=== PATIENT | male | born 1955 | race Caucasian/White ===

== ENCOUNTER 2020-10-09 05:05 | Inpatient (IN) | payer MEDICARE, SELFPAY ==
[2020-10-09] VITALS (30 sets, daily range): BP systolic 91–150; BP diastolic 61–103; PULSE 49–77; RESP 10–23; TEMP 35.6–36.6; O2SAT 92–100; BMI 27.5; BMI 27.3
--- NOTE | 2020-10-09 05:07 | EKG12_ITS ---
Test Reason : STEMI Blood Pressure : / mmHG Vent. Rate : 063 BPM Atrial Rate : 063 BPM P-R Int : 174 ms QRS Dur : 098 ms QT Int : 406 ms P-R-T Axes : 074 070 096 degrees QTc Int : 415 ms Normal sinus rhythm Right atrial enlargement ST elevation consider inferior injury or acute infarct with possible posterior extension ACUTE VA / STEMI Consider right ventricular involvement in acute inferior infarct Abnormal ECG Confirmed by ANTOINETTE MCKEON, CELE ([id number]), scientific editor TIGRE SHAVER ([id number]) on 10/13/2020 9:23:44 AM Referred By: Deann Khanna Confirmed By:CELE CURRY MD
--- NOTE | 2020-10-09 05:09 | ED.VIS.CHEST ---
HPI History of Present Illness Chief Complaint: Chest Pain Detail of Chief Complaint: Chest pain that started approximately 8:30 PM Informant: patient Narrative Narrative: Patient presents with chest pain that started around 8:30 PM last evening. At one point it woke him up and he felt like he had indigestion. Patient had numbness and tingling in both arms and nausea and felt like he was going to vomit. He is never had discomfort like this before. He has no cardiac history. Patient states that he used to be on cholesterol medicine. Patient is a smoker. He denies recent travel or surgery. Prior to arrival in the emergency department EMS had transmitted an EKG that showed an acute inferior wall MA Prior Similar Symptoms: No PFSH PFSH Home Medications Eye Thyroid 12.5 mg PO DAILY 07/08/15 [History Last Taken Unknown] Nature Thyroid 65 mg PO DAILY 07/08/15 [History Last Taken Unknown] cholecalciferol (vitamin D3) 10,000 unit PO DAILY 07/08/15 [History Last Taken Unknown] oxycodone-acetaminophen 1 - 2 tab PO Q6H PRN PRN #60 tab 07/14/15 [Rx Last Taken Unknown] Allergy/AdvReac Type Severity Reaction Status Date / Time No Known Allergies Allergy Verified 07/08/15 10:25 Social History Smoking Status: Light Smoker (<10/day) ROS ROS ED Review of Systems ROS Unobtainable: other Constitutional Constitutional ED: Reports lethargy; Denies chills, fever(s), sweats or weight loss Eyes Eyes: Denies blurry vision, change in vision or diplopia ENT ENT ED: Denies rhinorrhea or sore throat Cardiovascular Cardiovascular: Reports chest pain; Denies orthopnea Respiratory/Chest Respiratory/Chest: Reports dyspnea and dyspnea on exertion; Denies cough, orthopnea or sputum Gastrointestinal Gastrointestinal: Reports nausea; Denies abdominal pain, diarrhea or vomiting Genitourinary Genitourinary ED: Denies dysuria, hematuria or urinary frequency Musculoskeletal Musculoskeletal: Denies arthralgias, back pain, myalgias or neck pain Integumentary Denies abscess, Abrasions or rash Neurologic Neurologic: Denies headache(s) or weakness Psychiatric Psychiatric: Denies anxiety, depression or suicidal thoughts Endocrine Endocrinology: Denies polydipsia, polyphagia or polyuria Hematologic/Lymphatic Hematologic/Lymphatic: Denies easy bleeding, easy bruising or lymphadenopathy Allergic/Immunologic Allergic/Immunologic ED: Denies mouth swelling, tongue swelling or urticaria EXAM Physical Exam Const Vital Signs: 10/09/20 05:06 10/09/20 05:10 10/09/20 05:16 Temperature 96.1 F L 96.3 F L Temperature Source Temporal Temporal Pulse Rate 68 66 66 Respiratory Rate 17 16 14 Blood Pressure 150/103 H 127/94 H Blood Pressure Mean 118 105 Pulse Ox 95 92 Oxygen Delivery Method Nasal Cannula Nasal Cannula Oxygen Flow Rate (L/min) 2 2 Positive well nourished and well developed General Appearance ED: well developed and NAD HEENT Reports TM's clear and moist mucous membranes normocephalic and atraumatic; Negative for trauma or tenderness Tympanic Membrane ED: Yes TM's clear Eyes PERRL and EOMs intact bilaterally General Eye ED: Negative for pale conjunctiva or scleral icterus Neck no lymphadenopathy, supple and no JVD General: Negative for tenderness Chest Wall inspection of chest normal and palpation of chest normal Chest: Negative for tenderness Resp normal respiratory effort and clear to auscultation bilaterally Effort and Inspection: Negative for respiratory distress or pain with movement Auscultation: Negative for rhonchi, wheezes or diminished lung sounds Cardio regular rate, regular rhythm, S1 normal heart sound, S2 normal heart sound and no murmurs Peripheral Pulses: pulses 2+ throughout GI normal to inspection, nondistended, normoactive bowel sounds, soft to palpation, non-tender, non-distended and no masses Back/Spine no CVA tenderness and no thoracic nor lumbar tenderness Extremity normal to inspection General Extremety ED: Negative for edema General Extremity: Negative for edema Neuro oriented x3, CN's II-XII intact bilaterally, no sensory deficits noted and gait normal Sensorium / Orientation: awake, alert, oriented to person, oriented to place and oriented to time Motor Exam: strength 5/5 throughout and strength abnormal Psych mental status grossly normal Skin no rashes or lesions noted and no wounds MDM MDM MDM Narrative Medical decision making narrative: Acute STEMI alert was called prior to patient arrival in the emergency department. I discussed case with coin box collector on-call and Template Cutter was activated. Patient had an IV line established on arrival. He was placed on a registered nurse cardiac telemetry. He was started on heparin as well as Brilinta. Patient had received aspirin by EMS. Lab Data Attestation: I reviewed the patient's lab results. Labs: Laboratory Results - last 24 hr 10/09/20 05:10 WBC 8.6 RBC 4.57 L Hgb 14.4 Hct 44.6 MCV 97.6 H MCH 31.5 MCHC 32.3 RDW Std Deviation 47.0 H RDW Coeff of Sergio 13.2 Plt Count 233 MPV 11.0 Immature Gran % (Auto) 0.500 Neut % (Auto) 64.1 Lymph % (Auto) 27.0 Buchanan % (Auto) 6.6 Eos % (Auto) 1.3 Baso % (Auto) 0.5 Absolute Neuts (auto) 5.5 Absolute Lymphs (auto) 2.33 Nucleated RBC % 0 Radiography Chest X-Ray - ED: 1 View Diagnostic Testin view chest x-ray obtained interpreted by myself as no acute disease process. Official report from radiology pending. Discharge Plan Dx/Rx/DC Orders Clinical Impression: ST elevation (STEMI) myocardial infarction Disposition Disposition: Acute Care Hospital [facility]
[2020-10-09] MEDS: fentaNYL 100 MCG/2 ML Ampul 50 MCG IV (05:13)
[2020-10-09] MEDS: Heparin Injection (Vial) 5,000 UNIT/ML VIAL 4000 UNIT IV (05:14)
[2020-10-09] MEDS: TICAGRELOR 90 MG TABLET 180 MG PO (05:15)
[2020-10-09] MEDS: 0.9% Normal Saline 1,000 ML 150 ML IV (05:15)
--- NOTE | 2020-10-09 05:20 | RAD_ITS ---
STUDY: X-RAY CHEST REASON FOR EXAM: Male, 65 years old. chest pain TECHNIQUE: Single AP portable view of the chest. COMPARISON: None. FINDINGS: The lungs are clear and expanded. There is no demonstrated pleural abnormality. Normal size heart. Normal mediastinum and alee. Normal visualized pulmonary arteries. Normal visualized aortic arch and descending thoracic aorta. Normal visualized thoracic spine. Normal visualized ribs, clavicles, and shoulders. There is no demonstrated abnormality of the visualized soft tissue structures of the upper abdomen. RAD/Chest 1 View (Portable) IMPRESSION: Normal x-ray examination of the chest. Electronically Signed: Talat Rollins MD at 6:31 EDT Tel , Service support ,
[2020-10-09 05:25] LABS: Absolute Lymphocyte Count 2.33 X10^3/uL (0.83-4.51); Absolute Neutrophil Count 5.5 X10^3/uL (2.0-7.7); Basophil# 0.04 X10^3/uL; Basophil% 0.5 % (0-1); Eosinophil# 0.11 X10^3/uL; Eosinophils% 1.3 % (0-5); Hematocrit 44.6 % (40-54); Hemoglobin 14.4 g/dL (13.0-16.5); Lymphocyte # 2.33 X10^3/ul (0.83-4.51); Mean Corp Hgb Conc 32.3 g/dL (32-36); Mean Corpuscular Hgb 31.5 pg (27.0-32.0); Mean Corpuscular Volume 97.6 fL (80-94); Monocyte# 0.57 X10^3/uL; Monocyte% 6.6 % (0-10); NRBC Flagged by Analyzer 0 % (0-5); Neutrophil # 5.54 X10^3/uL (2.7-7.7); Neutrophil % 64.1 % (47-70); Platelet Count 233 K/mm3 (150-450); RBC Distribution Width CV 13.2 % (11.6-14.6); Red Blood Count 4.57 M/mm3 (4.6-6.2); White Blood Count 8.6 K/mm3 (4.4-11.0)
[2020-10-09] MEDS: Nitroglycerin (INPATIENT USE) 0.4 MG TAB.SUBL SL (05:28)
[2020-10-09 05:33] LABS: International Normalized Ratio 0.9; Prothrombin Time (Protime)PT. 11.9 SECONDS (11.7-14.9)
[2020-10-09] MEDS: Heparin 10,000 UNITS/10 ML Vial 1000 UNITS IV (05:40)
[2020-10-09 05:44] LABS: Anion Gap 5 (5-15); BUN 16 mg/dL (7-18); BUN/Creat Ratio 15.7 RATIO (10-20); Calcium,Total 8.8 mg/dL (8.5-10.1); Chloride 105 mmol/L (98-107); Creatinine, Serum 1.02 mg/dL (0.70-1.30); EST Glomerular Filtration Rate 77 mL/min (>60); Est Glom Filt Rate - Afr Amer 94 mL/min (>60); Estimated Creatinine Clearance 70.28 ml/min; Glucose 128 mg/dL (74-106); Sodium Level 138 mmol/L (136-145); Troponin-I HS 32.4 pg/mL (3.0-78.5)
[2020-10-09 05:45] LABS: Partial Thromboplast Time < 24.1 Seconds (24.1-36.2)
--- NOTE | 2020-10-09 06:32 | EKG12_ITS ---
Test Reason : POST CATH Blood Pressure : / mmHG Vent. Rate : 066 BPM Atrial Rate : 066 BPM P-R Int : 178 ms QRS Dur : 088 ms QT Int : 426 ms P-R-T Axes : 072 022 073 degrees QTc Int : 446 ms Normal sinus rhythm Biatrial enlargement Inferior infarct , age undetermined Abnormal ECG When compared with ECG of 09-OCT-2020 05:08, MANUAL COMPARISON REQUIRED, DATA IS UNCONFIRMED Confirmed by NAMAN MCKEON, RAJINDER ([id number]), editorial intern TIGRE SHAVER ([id number]) on 10/13/2020 2:04:12 PM Referred By: Deann Khanna Confirmed By:GERARDO FLORENCE MD
--- NOTE | 2020-10-09 06:40 | PCIREPORT_ITS ---
PCI Cardiac Cath Report PCI Report: Procedure performed; 1. Left heart catheterization 2. Left ventriculogram 3. Successful percutaneous coronary intervention/PCI of the culprit lesion, occluded proximal RCA 100% with predilatation and placement of drug-eluting stent 3 x 22 mm Orsiro line postdilated with 3.5 x 20 mm NC balloon And reduction of stenosis from 100% to 0% and change of the ELIECER flow from 0 to ELIECER-3 flow in the RCA 4. Placement of TR band to right radial artery arteriotomy site 5. 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 Patient had a history of smoking and he follow with primary physician and has been treated with cholesterol medication which he discontinued due to arthritis and muscular pain. He has no prior cardiac history and he is not aware about family history as he has been adopted. Consent; Risk and benefits of the procedure explained detail patient like to proceed informed consent obtained. Diagnostic and interventional catheters used; 1. Access from the right radial artery with placement of 6 Luxembourger sheath in the right radial artery and the use of cocktail of verapamil, heparin as well as nitroglycerin through the sheath 2. 5 Luxembourger JL 3.5 3. 5 Luxembourger pigtail catheter 4. 6 Luxembourger JR4 guide catheter 5. 0.014 run-through extra floppy 180 cm straight wire Procedure in detail: Patient brought into cath laboratory proceed with access and then will proceed with 5 Luxembourger JL 3.5 advanced ascending aorta cannulated the left main ostium without difficulty following this angiographic view obtained in JEANETTE, ONEAL cranial and caudal views Then will proceed with 6 Luxembourger JR4 guide cannulated the right coronary ostium and identified the lesion as occluded proximal RCA, proceed with wire across the lesion and then predilated the lesion with 2.5 x 50 mm image balloon this is followed by placement of drug-eluting stent 3 x 22 and followed by postdilatation using 3.5 x 20 mm NC balloon. And achievement of excellent result with the reduction of stenosis from 100% to 0 and achievement of a ELIECER-3 flow in the RCA Patient symptoms of chest pain resolved and had post perfusion arrhythmia and hypotension was given Levophed IV hydration and maintain a blood pressure of around 90 mmHg Findings; Hemodynamic; LVEDP around 22 mmHg Ejection fraction 45-50% with inferior hypokinesia No systolic gradient across aortic valve No mitral regurgitation noted Findings of coronary angiography; Left main normal angiographically bifurcating into LAD and left circumflex artery The left anterior descending moderate to large size vessel had proximal to mid diffuse atherosclerosis nonobstructive around 20%, 30 diagonal D1 had ostial lesion of around 60-70 The left circumflex is moderate-sized vessel mid to distal left circumflex had nonobstructive atherosclerosis of around 30% RCA occluded proximally large dominant artery with successful PCI and placement of drug-eluting stent as a specified. Conclusion recommendations; This patient had a history of smoking hyperlipidemia and presented with acute inferior myocardial infarction with successful PCI of the culprit lesion RCA 1. Would recommend Integrilin infusion for 18 hours 2. Echocardiogram to evaluate LV systolic function 3. Dual antiplatelet therapy Brilinta/aspirin for 1 year 4. High-dose statin atorvastatin 40 mg daily 5. We will start the patient also on cardiac rehab program phase 1. There is no complication in the Jute Bag Cutting Machine Operator patient left the Jute Bag Cutting Machine Operator in stable condition with no symptoms of chest pain Deann Khanna MD,[facility] master merchandiser
--- NOTE | 2020-10-09 08:20 | ECHOD_ITS ---
Reason For Study: STEMI Procedure This was a 2D Doppler, Color Flow transthoracic echocardiogram. Exam performed portable in ICU/CCU. Left Ventricle Normal left ventricle. The estimated ejection fraction is EF 50-55 %. Right Ventricle Normal right ventricle. Normal systolic function. Atria Normal left atrium. Normal right atrium. Mitral Valve The mitral valve is structurally normal. No prolapse or stenosis seen. Mild (1+) mitral valve insufficiency. Tricuspid Valve Normal tricuspid valve. Mild tricuspid valve insufficiency. Aortic Valve Normal aortic valve. Pulmonic Valve The pulmonic valve is not well visualized. Great Vessels Normal aortic root. Pericardium/Pleural No pericardial effusion. MMode/2D Measurements & Calculations LVIDd: 4.5 cm IVSd: 1.3 cm Ao root diam: 3.6 cm LVIDs: 3.0 cm LVPWd: 1.2 cm RVDd: 3.2 cm FS: 33.4 % LAV(MOD-bp): 62.1 ml LVAd ap4: 29.1 cm2 SV(MOD-sp4): 58.1 ml LAV(MOD-bp) Indexed: 31.1 ml/m2 LVLd ap4: 7.8 cm LAV(MOD-sp2): 44.6 ml EDV(MOD-sp4): 92.5 ml LAV(MOD-sp4): 70.3 ml EDV(sp4-el): 92.3 ml LVAs ap4: 15.4 cm2 LVLs ap4: 6.1 cm ESV(MOD-sp4): 34.4 ml ESV(sp4-el): 32.7 ml EF(MOD-sp4): 62.8 % EF(sp4-el): 64.6 % SV(sp4-el): 59.6 ml LA A4 area: 22.3 cm2 LA dimension(2D): 3.7 cm RA A4 area: 18.0 cm2 Doppler Measurements & Calculations Ao V2 max: 137.1 cm/sec LV V1 max: 143.7 cm/sec PA V2 max: 81.7 cm/sec Ao max P.5 mmHg LV V1 max P.3 mmHg TR max saul: 259.1 cm/sec TR max P.9 mmHg ECHO/Echo Complete Interpretation Summary The estimated ejection fraction is EF 50-55 %. Mild Infeo-Basal Hypokinesia mild MR Mild TR Ordering Physician: Deann Khanna Referring Physician: Deann Khanna Performed By: Lizzeth Garcia, MARELY, RVT
--- NOTE | 2020-10-09 09:40 | CASEMGMT ---
DARYL MULLER Assessment: Face to Face with pt for initial transition planning/care coordination assessment. DARYL MULLER introduced self and role at [facility], pt voices understanding and consents to assessment. Pt is A/O x4 and answers all questions appropriately at this time. Pt sitting up in bed in no distress. Care providers, pharmacy, and demographics verified/updated. Admitting Dx:STEMI PCP:Lin Specialists:Pt denies having any specialists. [facility]erred [facility]acy: [facility] Insurance: [facility] Prescription Benefit: yes LW/HPOA: Pt denies having a LW/DPOA. LNOK: Kalpana Sandhu, Living Arrangements: Pt lives in a single story house with two steps to enter with . Pt states he is I in ADL's and denies concerns at home. Transportation: Pt states he drives and denies concerns with transportation. DME/HHC/SNF: Pt has a CPAP at home. Denies hx of HHC or SNF stay. Pt states no concerns with going home at time of dc. 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 Pt states no further concerns/needs. CM to follow. Advised pt to ask CM if any further question/concerns/needs arise, voices understanding. Pt Goal: Home Plan: Home
--- NOTE | 2020-10-09 10:20 | CON.PCM.CA_ITS ---
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 Patient will be monitored in the intensive care unit on Integrilin for 18 hours 2. DAPT/dual antiplatelet therapy with Brilinta and aspirin for 1 year 3. He had a slow heart rate no beta-dilip for now High-dose statin atorvastatin 40 mg once a day. Evidently patient had a history of hyperlipidemia and stopped taking the statin. 4. We will transfer to the PCU if he remains stable tomorrow 5. Phase 1 cardiac rehab program post ME HPI Consult Data Date of Consult: 10/09/20 HPI Narrative Reason for Consultation: Patient is a STEMI/acute inferior ME HPI Narrative: REENA BOOTH, is a 65 M who presents [facility] Medical History Coronary artery disease CPAP (continuous positive airway pressure) dependence Hearing loss, left Hearing loss, right Hypothyroidism Myocardial infarct Sleep apnea Smoker Home Medications cholecalciferol (vitamin D3) 10,000 unit PO DAILY 07/08/15 [History Last Taken 10/08/20] fluoxetine [Prozac] 20 mg PO DAILY 10/09/20 [History Last Taken 10/08/20] levothyroxine 150 mcg PO DAILY 10/09/20 [History Last Taken 10/08/20] Allergy/AdvReac Type Severity Reaction Status Date / Time No Known Allergies Allergy Verified 07/08/15 10:25 Social History Smoking Status: Light Smoker (<10/day) Physical Exam Narrative Patient examined and evaluated Cardiovascular exam; S1-S2 regular there is no murmur no systolic or diastolic murmur Chest examination clear to auscultation Abdomen soft Examination lower extremity no clubbing no cyanosis no lower extremity edema Examination of central nervous system no focal neurological deficit noted Objective Data Vital Signs: Vital Signs Temp Pulse Resp BP Pulse Ox 96.3 F L 67 11 L 91/64 94 10/09/20 05:16 10/09/20 08:00 10/09/20 07:30 10/09/20 07:30 10/09/20 07:30 Oxygen Flow Rate (L/min) 2 Oxygen Delivery Method Room Air Weight: 185 lb Body Mass Index (BMI) 27.3 Intake & Output: Intake and Output for Last 24 Hours 10/07/20 10/08/20 10/09/20 23:59 23:59 23:59 Intake Total 650 / 650 Balance 650 / 650 Lab / Micro Data Result Diagrams: 10/09/20 05:10 10/09/20 05:10 Labs: Laboratory Results - last 24 hr 10/09/20 05:10: WBC 8.6, RBC 4.57 L, Hgb 14.4, Hct 44.6, MCV 97.6 H, MCH 31.5, MCHC 32.3, RDW Std Deviation 47.0 H, RDW Coeff of Sergio 13.2, Plt Count 233, MPV 11.0, Immature Gran % (Auto) 0.500, Neut % (Auto) 64.1, Lymph % (Auto) 27.0, [place] % (Auto) 6.6, Eos % (Auto) 1.3, Baso % (Auto) 0.5, Absolute Neuts (auto) 5.5, Absolute Lymphs (auto) 2.33, Nucleated RBC % 0 10/09/20 05:10: PT 11.9, INR 0.9, APTT < 24.1 L 10/09/20 05:10: Sodium 138, Potassium 4.0, Chloride 105, Carbon Dioxide 28.0, Anion Gap 5, BUN 16, Creatinine 1.02, Estim Creat Clear Calc 70.28, Est GFR (MDRD) Af Amer 94, Est GFR (MDRD) Non-Af 77, BUN/Creatinine Ratio 15.7, Glucose 128 H, Calcium 8.8, Troponin I High Sens 32.4 Cardiology Labs/Tests 10/09/20 05:10: WBC 8.6, RBC 4.57 L, Hgb 14.4, Hct 44.6, MCV 97.6 H, MCH 31.5, MCHC 32.3, Plt Count 233, MPV 11.0, Immature Gran % (Auto) 0.500, Neut % (Auto) 64.1, Lymph % (Auto) 27.0, [place]illion % (Auto) 6.6, Eos % (Auto) 1.3, Baso % (Auto) 0.5, Absolute Neuts (auto) 5.5, Nucleated RBC % 0 10/09/20 05:10: PT 11.9, INR 0.9, APTT < 24.1 L 10/09/20 05:10: Sodium 138, Potassium 4.0, Chloride 105, Carbon Dioxide 28.0, Anion Gap 5, BUN 16, Creatinine 1.02, Est GFR (MDRD) Af Amer 94, Est GFR (MDRD) Non-Af 77, BUN/Creatinine Ratio 15.7, Glucose 128 H, Calcium 8.8 Rhythm: Normal sinus EKG: Remarkable ST elevation in the inferior lead with ST depression noted in V1 V2 This consistent with STEMI/acute inferior myocardial infarction Radiography Diagnostic Testing: Radiology Impression Chest X-Ray 10/09/20 05:20 IMPRESSION: Normal x-ray examination of the chest. Electronically Signed: Talat Rollins MD at 6:31 EDT Tel , Service support ,
--- NOTE | 2020-10-09 12:59 | HP.PCM.HOS_ITS ---
HPI - General General Date of Admission: 10/09/20 Date of Service: 10/09/20 Chief Complaint: Chest pain HPI Narrative REENA BOOTH, is a 65 M who presents to the emergency room at [facility] with a chief complaint of precordial chest discomfort that he described as indigestion, this started approximately 8:30 PM on 10/08/2020, patient had tingling in both of his arms and nausea, patient felt as if he was going to vomit but he did not. Patient has no history of cardiac disease. Patient admits to smoking, patient states that he takes cholesterol medications (pravastatin). Prior to arrival in the emergency room, EMS had transmitted an EKG that showed an acute inferior wall CT, acute STEMI alert was called prior to the patient's arrival in the emergency room, the ER physician discussed the case with Dr. Khanna and Director Banking. Was activated. Patient was started on heparin as well as Brilinta, patient had received aspirin by EMS. Patient underwent a cardiac catheterization with successful percutaneous coronary intervention of the culprit lesion which was an occluded proximal RCA at 100%, a drug-eluting stent was placed. Patient's other coronary arteries showed evidence of nonocclusive coronary disease. Patient was admitted to ICU for further care after the procedure. At the time of my examination, patient had no complaints of any chest pain or shortness of breath. PFSH Medical History Coronary artery disease CPAP (continuous positive airway pressure) dependence Hearing loss, left Hearing loss, right Hypothyroidism Myocardial infarct Sleep apnea Smoker Home Medications cholecalciferol (vitamin D3) 10,000 unit PO DAILY 07/08/15 [History Last Taken 10/08/20] fluoxetine [Prozac] 20 mg PO DAILY 10/09/20 [History Last Taken 10/08/20] levothyroxine 150 mcg PO DAILY 10/09/20 [History Last Taken 10/08/20] Allergy/AdvReac Type Severity Reaction Status Date / Time No Known Allergies Allergy Verified 07/08/15 10:25 Social History Smoking Status: Light Smoker (<10/day) ROS Constitutional Constitutional: Denies anorexia, change in weight, chills, fatigue, fever(s), malaise or weakness Eyes Eyes: Denies blurry vision or loss of vision ENT HEENT: Denies abnormal hearing, ear pain, headache(s) or hearing loss Cardiovascular Cardiovascular: Reports chest pain; Denies claudication, dyspnea on exertion, edema, lightheadedness, orthopnea, paroxysmal nocturnal dyspnea or syncope Respiratory/Chest Respiratory/Chest: Denies cough, dyspnea, productive cough, shortness of breath at rest, shortness of breath with exertion or wheezing Gastrointestinal Gastrointestinal: Reports nausea; Denies abdominal pain, coffee ground emesis, constipation, diarrhea, dyspepsia or vomiting Genitourinary Genitourinary: Denies burning urination, difficulty urinating, dysuria, hematuria or nocturia Musculoskeletal Musculoskeletal: Denies arthralgias, back pain, joint pain or joint stiffness Neurologic Neurologic: Denies abnormal gait or abnormal speech Psychiatric Psychiatric: Denies anxiety or depression Endocrine Endocrinology: Denies change in body appearance, cold intolerance or excessive sweating Hematologic/Lymphatic Hematologic/Lymphatic: Denies anemia or easy bleeding Allergic/Immunologic Allergic/Immunologic: Denies rhinitis, hives, eczemia or asthma Vital Signs Vital Signs Vital Signs: 10/09/20 05:06 10/09/20 05:10 10/09/20 05:16 Temperature 96.1 F L 96.3 F L Temperature Source Temporal Temporal Pulse Rate 68 66 66 Pulse Strength Respiratory Rate 17 16 14 Blood Pressure 150/103 H 127/94 H Blood Pressure [BP] Blood Pressure Mean 118 105 Blood Pressure Mean [BP] Blood Pressure Source Blood Pressure Source [BP] Blood Pressure Position Blood Pressure Position [BP] Blood Pressure Location Blood Pressure Location [BP] Pulse Ox 95 92 Oxygen Delivery Method Nasal Cannula Nasal Cannula Oxygen Flow Rate (L/min) 2 2 10/09/20 05:28 10/09/20 05:35 10/09/20 06:45 Temperature Temperature Source Pulse Rate 65 68 Pulse Strength Respiratory Rate 13 Blood Pressure 127/94 H 127/94 H 95/64 Blood Pressure [BP] Blood Pressure Mean 74 Blood Pressure Mean [BP] Blood Pressure Source Monitor Blood Pressure Source [BP] Blood Pressure Position Semi-Fowlers Blood Pressure Position [BP] Blood Pressure Location Left Arm Blood Pressure Location [BP] Pulse Ox 93 Oxygen Delivery Method Room Air Oxygen Flow Rate (L/min) 10/09/20 07:00 10/09/20 07:08 10/09/20 07:15 Temperature Temperature Source Pulse Rate 68 65 Pulse Strength Respiratory Rate 14 14 Blood Pressure 95/61 98/64 Blood Pressure [BP] Blood Pressure Mean 72 75 Blood Pressure Mean [BP] Blood Pressure Source Monitor Monitor Blood Pressure Source [BP] Blood Pressure Position Semi-Fowlers Semi-Fowlers Blood Pressure Position [BP] Blood Pressure Location Left Arm Left Arm Blood Pressure Location [BP] Pulse Ox 94 96 Oxygen Delivery Method Room Air Nasal Cannula Room Air Oxygen Flow Rate (L/min) 2 10/09/20 07:30 10/09/20 08:00 10/09/20 08:15 Temperature 97.9 F Temperature Source Temporal Pulse Rate 65 50 L 56 L Pulse Strength Respiratory Rate 11 L 10 L 12 Blood Pressure 91/64 101/66 101/71 Blood Pressure [BP] Blood Pressure Mean 73 77 81 Blood Pressure Mean [BP] Blood Pressure Source Monitor Monitor Monitor Blood Pressure Source [BP] Blood Pressure Position Semi-Fowlers Semi-Fowlers Semi-Fowlers Blood Pressure Position [BP] Blood Pressure Location Left Arm Left Arm Left Arm Blood Pressure Location [BP] Pulse Ox 94 96 98 Oxygen Delivery Method Room Air Room Air Room Air Oxygen Flow Rate (L/min) 10/09/20 08:30 10/09/20 08:45 10/09/20 09:00 Temperature Temperature Source Pulse Rate 68 72 54 L Pulse Strength Respiratory Rate 23 H 18 16 Blood Pressure 97/70 98/62 102/74 Blood Pressure [BP] Blood Pressure Mean 79 74 83 Blood Pressure Mean [BP] Blood Pressure Source Monitor Monitor Monitor Blood Pressure Source [BP] Blood Pressure Position Semi-Fowlers Semi-Fowlers Semi-Fowlers Blood Pressure Position [BP] Blood Pressure Location Left Arm Left Arm Left Arm Blood Pressure Location [BP] Pulse Ox 98 98 100 Oxygen Delivery Method Room Air Room Air Room Air Oxygen Flow Rate (L/min) 10/09/20 09:30 10/09/20 09:49 10/09/20 10:00 Temperature Temperature Source Pulse Rate 53 L 53 L Pulse Strength Normal (2+) Respiratory Rate 13 12 Blood Pressure 103/72 102/80 Blood Pressure [BP] Blood Pressure Mean 82 87 Blood Pressure Mean [BP] Blood Pressure Source Monitor Monitor Blood Pressure Source [BP] Blood Pressure Position Semi-Fowlers Semi-Fowlers Blood Pressure Position [BP] Blood Pressure Location Left Arm Left Arm Blood Pressure Location [BP] Pulse Ox 100 99 Oxygen Delivery Method Room Air Room Air Oxygen Flow Rate (L/min) 10/09/20 11:00 10/09/20 12:00 Temperature 97.8 F Temperature Source Temporal Pulse Rate 62 63 Pulse Strength Respiratory Rate 22 H 18 Blood Pressure 103/78 Blood Pressure [BP] 106/81 H Blood Pressure Mean 86 Blood Pressure Mean [BP] 89 Blood Pressure Source Monitor Blood Pressure Source [BP] Monitor Blood Pressure Position Semi-Fowlers Blood Pressure Position [BP] Semi-Fowlers Blood Pressure Location Left Arm Blood Pressure Location [BP] Left Arm Pulse Ox 93 99 Oxygen Delivery Method Room Air Room Air Oxygen Flow Rate (L/min) Weight Weight: 83.915 kg Body Mass Index (BMI) 27.3 Physical Exam Const alert, oriented x3, no apparent distress and healthy appearing General Appearance: cooperative, well kempt and well developed Orientation / Consciousness: awake, oriented to person, oriented to place and oriented to time HEENT normocephalic, head/scalp atraumatic, hearing grossly normal bilaterally and moist oral mucous membranes Eyes PERRL, EOMs intact bilaterally and conjunctivae normal Neck nuchal rigidity, supple, no JVD, thyroid normal and no carotid bruits General: trachea midline Resp normal respiratory effort, no retractions, no use of accessory muscles and clear to auscultation bilaterally Auscultation: Negative for rales, rhonchi or wheezes Cardio regular rate, regular rhythm, S1 normal heart sound, S2 normal heart sound, no murmurs, no rub and no gallops GI normal to inspection, nondistended, normoactive bowel sounds, soft to palpation, non-tender and non-distended Extremity normal to inspection and no clubbing, cyanosis or edema Skin no rashes or lesions noted General Skin Exam: no breakdown Neuro oriented x3, CN's II-XII intact bilaterally, no focal motor deficits and no sensory deficits noted Sensorium / Orientation: awake and alert Speech: speech normal Psych thought process normal and affect normal Results Medical Records Data Medical Nutrition Assessment Dietitian: Nutrition Therapy Diagnosis Start: 10/09/20 09:32 Freq: Status: Active Protocol: Document 10/09/20 09:53 KEO (Rec: 10/09/20 09:53 [facility] [id number]) Nutrition Malnutrition Evidence of Malnutrition Exists No Intake Problem None at this time Status Active Problem Clinical Problem None at this time Status Active Problem Recommendation Dietitian Recommendations/Changes Will continue Cardiac Heart Healthy diet as ordered. Will provide additional diet education at time of follow up as indicated. Lab / Micro Data Result Diagrams: 10/09/20 05:10 10/09/20 05:10 Labs: Laboratory Results - last 24 hr 10/09/20 05:10: WBC 8.6, RBC 4.57 L, Hgb 14.4, Hct 44.6, MCV 97.6 H, MCH 31.5, MCHC 32.3, RDW Std Deviation 47.0 H, RDW Coeff of Sergio 13.2, Plt Count 233, MPV 11.0, Immature Gran % (Auto) 0.500, Neut % (Auto) 64.1, Lymph % (Auto) 27.0, [place] % (Auto) 6.6, Eos % (Auto) 1.3, Baso % (Auto) 0.5, Absolute Neuts (auto) 5.5, Absolute Lymphs (auto) 2.33, Nucleated RBC % 0 10/09/20 05:10: PT 11.9, INR 0.9, APTT < 24.1 L 10/09/20 05:10: Sodium 138, Potassium 4.0, Chloride 105, Carbon Dioxide 28.0, Anion Gap 5, BUN 16, Creatinine 1.02, Estim Creat Clear Calc 70.28, Est GFR (MDRD) Af Amer 94, Est GFR (MDRD) Non-Af 77, BUN/Creatinine Ratio 15.7, Glucose 128 H, Calcium 8.8, Troponin I High Sens 32.4 Radiology Impression Chest X-Ray 10/09/20 05:20 IMPRESSION: Normal x-ray examination of the chest. Electronically Signed: Talat Rollins MD at 6:31 EDT Tel , Service support , Echocardiogram 10/09/20 08:20 Interpretation Summary The estimated ejection fraction is EF 50-55 %. Mild Infeo-Basal Hypokinesia mild MR Mild TR Ordering Physician: Deann Khanna Referring Physician: Deann Khanna Performed By: Lizzeth Garcia, MARELY, RVT Assessment & Plan Assessment/Plan (1) ST elevation (STEMI) myocardial infarction: PLAN: 1. Acute inferior wall CT-patient appears stable after ELIA to RCA, cardiology following, cardiology states that they would not recommend a beta- dilip at this time due to bradycardia that the patient had. Patient is on a statin, aspirin, and Brilinta. #2 occlusive coronary artery disease right coronary artery #3 nonocclusive coronary artery disease #4 hyperlipidemia Charges/Coding Visit Charges Inpatient E&M: 73184 Init Hosp L3
--- NOTE | 2020-10-09 20:09 | NURSING ---
Pt up walking in [place], Integrilin gtt running and cont cardiac monitoring. Pt denies pain and SOB, only c/o slight pressure right under breast bone, but that's been there all day.
[2020-10-09] MEDS: Atorvastatin Calcium 80 MG Tablet PO (22:40)
[2020-10-10] VITALS (12 sets, daily range): BP systolic 90–108; BP diastolic 57–75; PULSE 49–65; RESP 12–19; TEMP 36.2–36.7; O2SAT 94–97
--- NOTE | 2020-10-10 04:56 | EKG12_ITS ---
Test Reason : AM EKG Blood Pressure : / mmHG Vent. Rate : 059 BPM Atrial Rate : 059 BPM P-R Int : 158 ms QRS Dur : 084 ms QT Int : 444 ms P-R-T Axes : 056 -21 015 degrees QTc Int : 439 ms Sinus bradycardia Inferior infarct , age undetermined Abnormal ECG When compared with ECG of 09-OCT-2020 06:47, MANUAL COMPARISON REQUIRED, DATA IS UNCONFIRMED Confirmed by NAMAN MCKEON, RAJINDER ([id number]), industrial editor TIGRE SHAVER ([id number]) on 10/13/2020 2:03:38 PM Referred By: Deann Khanna Confirmed By:GERARDO FLORENCE MD
[2020-10-10] MEDS: Levothyroxine 150 MCG Tablet PO (05:27)
[2020-10-10] MEDS: 0.9% Saline Lock 10 ML Syringe IV (05:27)
[2020-10-10 05:44] LABS: Hematocrit 37.6 % (40-54); Hemoglobin 12.6 g/dL (13.0-16.5); Mean Corp Hgb Conc 33.5 g/dL (32-36); Mean Corpuscular Hgb 32.4 pg (27.0-32.0); Mean Corpuscular Volume 96.7 fL (80-94); Mean Platelet Vol. 11.3 fl (6.2-12.0); Platelet Count 192 K/mm3 (150-450); RBC Distribution Width CV 13.4 % (11.6-14.6); RBC Distribution Width SD 47.8 fl (35.1-43.9); Red Blood Count 3.89 M/mm3 (4.6-6.2); White Blood Count 7.5 K/mm3 (4.4-11.0)
[2020-10-10 06:04] LABS: Anion Gap 6 (5-15); BUN 12 mg/dL (7-18); Chloride 109 mmol/L (98-107); Cholesterol 220 mg/dL (200); Creatinine, Serum 0.86 mg/dL (0.70-1.30); EST Glomerular Filtration Rate 94 mL/min (>60); Est Glom Filt Rate - Afr Amer 114 mL/min (>60); Estimated Creatinine Clearance 83.35 ml/min; Glucose 104 mg/dL (74-106); Potassium 3.9 mmol/L (3.5-5.1); Sodium Level 140 mmol/L (136-145); Triglycerides 190 mg/dL
[2020-10-10 06:35] LABS: High Density Lipoprotein 31 mg/dL
[2020-10-10] MEDS: Aspirin 81 MG TAB.CHEW PO (09:40)
[2020-10-10] MEDS: TICAGRELOR 90 MG TABLET PO (09:40)
[2020-10-10] MEDS: FLUoxetine 20 MG Capsule PO (09:40)
--- NOTE | 2020-10-10 12:04 | PCM.DC ---
Discharge Instructions Follow Up Care Test Results: Test results from this visit will be discussed in further detail at your follow-up appointment, if applicable. Discharge Plan Admission Admit Date/Time: 10/09/20 07:48 Attending Provider: Jose Mensah Primary Care Provider: Mark Ceballos Consulting Providers: Mark Gilliland ; Deann Khanna Instructions Additional Instructions / Restrictions: Please schedule patient with Dr. Joseph 1 week after discharge to arrange cardiac rehab and routine follow-up. Notify patient to consider a prescription for coenzyme Q 10 with his primary care provider if the cramping with Lipitor becomes problematic. Discharge Orders/Prescriptions Prescriptions: New Brilinta 90 mg Tablet 90 mg PO BID Qty: 60 RF: 1 atorvastatin [Lipitor] 40 mg tablet 40 mg PO DAILY Qty: 30 RF: 1 aspirin 81 mg tablet,delayed release (DR/EC) 81 mg PO DAILY Qty: 30 RF: 1 Continued cholecalciferol (vitamin D3) 5,000 UNIT capsule 10,000 unit PO DAILY RF: 0 levothyroxine 150 mcg tablet 150 mcg PO DAILY RF: 0 fluoxetine [Prozac] 20 mg capsule 20 mg PO DAILY RF: 0 Referrals / Follow Up: Mark Ceballos MD [Primary Care Provider] - Care Physician,No Primary [NON-STAFF] -
--- NOTE | 2020-10-10 12:11 | DS.PCM_ITS ---
Providers Date of Admission: 10/09/20 Primary Care Physician: Dr. Mark Ceballos MD Consultations 10/09/20 07:00 Consult: Hospitalist Routine Consulting Provider: Mark Gilliland Reason for Consult: medical management EMERGENT Consult: No Notified: Yes Date Notified: 10/09/20 Time Notified: 07:00 Method of Notification: Verbal 10/09/20 14:00 Consult: Cardiology Routine Consulting Provider: Deann Khanna Reason for Consult: STEMI EMERGENT Consult: No Notified: Yes Date Notified: 10/09/20 Time Notified: 05:01 Method of Notification: Verbal Method of Consult:: In-Person Reason For Visit: STEMI Diagnosis Discharge Diagnosis (1) ST elevation (STEMI) myocardial infarction: Status: Acute Code(s): I21.3 - ST elevation (STEMI) myocardial infarction of unspecified site Medications at Discharge Home Medications cholecalciferol (vitamin D3) 10,000 unit PO DAILY 07/08/15 fluoxetine [Prozac] 20 mg PO DAILY 10/09/20 levothyroxine 150 mcg PO DAILY 10/09/20 aspirin 81 mg PO DAILY #30 tab 10/10/20 atorvastatin [Lipitor] 40 mg PO DAILY #30 tab 10/10/20 ticagrelor [Brilinta] 90 mg PO BID #60 tab 10/10/20 Hospital Course Summary of Care Provided Hospital Course: The patient was hospitalized on 10/09/2020 because of chest pain that started at 8:30 PM on 10/08/2020. Given the patient's tobacco use history, symptoms on presentation, an EKG that showed an acute inferior wall CT (he had ST segment elevation in the inferior leads with ST depression in V1 and V2), cardiology was notified and a decision was made to initiate an acute STEMI alert with immediate intervention. The patient was started on a combination of heparin and Brilinta. The patient had successful percutaneous intervention of his occluded right coronary artery with placement of a drug-eluting stent with reduction of the stenosis from 100% down to 0% and an improvement to EILECER-3 flow. He was recommended for an 18-hour infusion of Integrilin which he received during his stay. An echocardiogram during this stay showed ejection fraction of 50 to 55% with inferobasal hypokinesia and mild MR. Overnight, the patient had complete resolution of his chest discomfort. He denied any ort hopnea or PND. He was not reporting any shortness of breath with any limited activity and denied any nausea or vomiting. He noted that he felt more energetic. He does report routine compliance with his CPAP in the outpatient setting for about 8 hours per night. He was also very sure that he was going to stop smoking altogether (he was smoking about 10 cigarettes/day) and declined any need for nicotine patch. He was started on a combination of Brilinta 90 mg twice daily along with aspirin 81 mg daily and Lipitor 40 mg daily at the recommendations of cardiology. The patient has had problems with statins in the past and was recommended to consider coenzyme Q 10 if he developed additional joint symptoms. Given the patient's clinical improvement and successful intervention, he was recommended for discharge home on 10/10/2020. I did review the plan of care with the patient's , Kalpana, at the bedside in the presence of the patient. I also reviewed the plan of care with cardiology. The patient will follow up with Dr. Joseph in 1 week to discuss cardiac rehab as well as medication adjustments. The patient was not given a beta-adri at the recommendation of cardiology because of his relative bradycardia (he was routinely in the 50s during his stay). We talked about the benefits of dietary discretion, routine exercise, and compliance with his CPAP. 45 minutes were s pent in the coordination of this patient's discharge plan. Physical Exam Narrative The patient was lying in bed with no acute distress or tachypnea. His lungs were clear to auscultation bilaterally with no rales or wheezing. His heart was regular with a controlled rate and no murmurs or gallops. He had no pretibial edema or venous stasis changes. His abdomen was soft and nontender with normal bowel sounds. He was alert and oriented x3 with no focal motor weakness. He had a normal affect and mood. Weight / BMI Weight Weight: 183 lb 6.4 oz Body Mass Index (BMI) 27.3 ABG / Lab / Microbiology Data Result Diagrams: 10/10/20 05:25 10/10/20 05:25 Laboratory: Laboratory Results - last 24 hr 10/10/20 05:25: WBC 7.5, RBC 3.89 L, Hgb 12.6 L, Hct 37.6 L, MCV 96.7 H, MCH 32.4 H, MCHC 33.5, RDW Std Deviation 47.8 H, RDW Coeff of Sergio 13.4, Plt Count 192, MPV 11.3 10/10/20 05:25: Sodium 140, Potassium 3.9, Chloride 109 H, Carbon Dioxide 25.0, Anion Gap 6, BUN 12, Creatinine 0.86, Estim Creat Clear Calc 83.35, Est GFR (MDRD) Af Amer 114, Est GFR (MDRD) Non-Af 94, BUN/Creatinine Ratio 14.0, Glucose 104, Calcium 8.0 L, Triglycerides 190, Cholesterol 220 H 10/10/20 05:25: HDL Cholesterol 31 L D/C Instructions Additional Instructions: 1. Follow-up with Dr. Joseph in 1 week. 2. Use Brilinta twice daily along with 81 mg of aspirin. 3. Quit smoking altogether (call your family doctor if you would like to consider the nicotine patches as you declined the need at discharge). 4. Try the Lipitor 40 mg daily and ask about coenzyme Q 10 if you develop cramping. Meaningful Use Info Meaningful Use Diagnoses (Choose all that apply): AMI AMI/Post PCI/Angioplasty Aspirin given w/in 24hrs of arrival?: Yes ASA at discharge?: Yes Statins at discharge?: Yes Eulogio/ARB at discharge?: No Reason Eulogio/ARB not ordered:: Not indicated Beta Adri at discharge?: No Reason Beta Adri not ordered:: Allergy and Drug Interaction (Patient with baseline bradycardia) Done w/ Acute CT measure.: Yes Discharge Plan Admission Admit Date/Time: 10/09/20 07:48 Attending Provider: Jose Mensah Primary Care Provider: Mark Ceballos Consulting Providers: Mark Gilliland ; Deann Khanna Instructions Additional Instructions / Restrictions: Please schedule patient with Dr. Joseph 1 week after discharge to arrange cardiac rehab and routine follow-up. Notify patient to consider a prescription for coenzyme Q 10 with his primary care provider if the cramping with Lipitor becomes problematic. Discharge Orders/Prescriptions Prescriptions: New Brilinta 90 mg Tablet 90 mg PO BID Qty: 60 RF: 1 atorvastatin [Lipitor] 40 mg tablet 40 mg PO DAILY Qty: 30 RF: 1 aspirin 81 mg tablet,delayed release (DR/EC) 81 mg PO DAILY Qty: 30 RF: 1 Continued cholecalciferol (vitamin D3) 5,000 UNIT capsule 10,000 unit PO DAILY RF: 0 levothyroxine 150 mcg tablet 150 mcg PO DAILY RF: 0 fluoxetine [Prozac] 20 mg capsule 20 mg PO DAILY RF: 0 Referrals / Follow Up: Mark Ceballos MD [Primary Care Provider] - Care Physician,No Primary [NON-STAFF] - Charges/Coding Visit Charges Inpatient E&M: 65358 [facility] Hosp
--- NOTE | 2020-10-10 12:22 | PCM.PN.CARD ---
Subjective Subjective Seen and evaluated at bedside along with the nursing staff No symptoms of chest pain reported Objective Data Vital Signs: Vital Signs Temp Pulse Resp BP Pulse Ox 97.5 F L 60 19 H 106/63 97 10/10/20 08:00 10/10/20 10:00 10/10/20 10:00 10/10/20 10:00 10/10/20 10:00 Oxygen Flow Rate (L/min) 2 Oxygen Delivery Method Room Air Weight: 183 lb 6.4 oz Body Mass Index (BMI) 27.3 Intake & Output: Intake and Output for Last 24 Hours 10/08/20 10/09/20 10/10/20 23:59 23:59 23:59 Intake Total 2280.13 / 2280.13 941 / 941 Output Total 1500 / 1500 1275 / 1275 Balance 780.13 / 780.13 -334 / -334 Lab / Micro Data Result Diagrams: 10/10/20 05:25 10/10/20 05:25 Labs: Laboratory Results - last 24 hr 10/10/20 05:25: WBC 7.5, RBC 3.89 L, Hgb 12.6 L, Hct 37.6 L, MCV 96.7 H, MCH 32.4 H, MCHC 33.5, RDW Std Deviation 47.8 H, RDW Coeff of Sergio 13.4, Plt Count 192, MPV 11.3 10/10/20 05:25: Sodium 140, Potassium 3.9, Chloride 109 H, Carbon Dioxide 25.0, Anion Gap 6, BUN 12, Creatinine 0.86, Estim Creat Clear Calc 83.35, Est GFR (MDRD) Af Amer 114, Est GFR (MDRD) Non-Af 94, BUN/Creatinine Ratio 14.0, Glucose 104, Calcium 8.0 L, Triglycerides 190, Cholesterol 220 H 10/10/20 05:25: HDL Cholesterol 31 L Cardiology Labs/Tests 10/10/20 05:25: WBC 7.5, RBC 3.89 L, Hgb 12.6 L, Hct 37.6 L, MCV 96.7 H, MCH 32.4 H, MCHC 33.5, Plt Count 192, MPV 11.3 10/10/20 05:25: Sodium 140, Potassium 3.9, Chloride 109 H, Carbon Dioxide 25.0, Anion Gap 6, BUN 12, Creatinine 0.86, Est GFR (MDRD) Af Amer 114, Est GFR (MDRD) Non-Af 94, BUN/Creatinine Ratio 14.0, Glucose 104, Calcium 8.0 L, Triglycerides 190, Cholesterol 220 H 10/10/20 05:25: HDL Cholesterol 31 L Rhythm: Normal sinus rhythm EKG: STEMI/acute inferior ME Physical Exam Narrative Patient alert and oriented x3 Cardiovascular exam; S1-S2 regular there is no murmur no systolic or diastolic murmur. Chest examination; Normal breath sounds bilaterally Examination abdomen; Soft no palpable mass Examination lower extremity; No lower extremity edema Examination of central nervous system. No focal neurological deficit noted. Assessment & Plan Assessment/Plan (1) ST elevation (STEMI) myocardial infarction: PLAN: 65-year-old, pleasant patient. Presented with severe retrosternal chest pain, with diaphoresis With a clinical diagnosis of STEMI/acute inferior ME Underwent emergency cardiac catheterization with PCI and stent of the culprit vessel proximal RCA with placement of a drug-eluting stent and maintenance of ELIECER-3 flow in the RCA This morning he is feeling better no symptoms of chest pain Recommendation plan; 1. Continue on DAPT/dual antiplatelet therapy with Brilinta and aspirin for 1 year 2. He has some intolerance for statin in the past would recommend to start on atorvastatin as tolerated 3. Patient to follow-up in cardiology clinic with Dr. Joseph for continuation of cardiac care plan 4. Phase 1 cardiac rehab program #5 Baseline heart rate is slow no beta-dilip 6. Advised cessation of smoking (2) Hyperlipidemia associated with type 2 diabetes mellitus:
--- NOTE | 2020-10-11 07:52 | CRPHASE1 ---
Patient Communication PHII Cardiac Rehab Discussed with Patient:: Yes Guide to Cardiac Rehab Given to Patient:: Yes Cardiac Rehab Facility Choice List Given to Patient:: Yes Choice Program [facility] CR PHII:: Communication Given to CR Certified Income Tax Preparer:: Deann Khanna Refer Phase II Cardiac Rehab:: Yes Sessions:: 36 sessions - 3 days/wk, 12 weeks Choice Letter Given to Patient:: Yes Guide to Cardiac Rehab Mailed to Patient by CR Staff:: Yes Patient Contacted Post Discharge by CR Staff:: Yes PHII Cardiac Rehab Referral:: [facility] Phase I Charge:: Level I - Education Cardiac Rehabilitation Info Cardiac Rehabilitation Program Information: Cardiac Rehabilitation is important for patients like you who are recovering from a heart problem. Cardiac rehabilitation programs are recognized as integral to the continued care of the patient with coronary heart disease. The cardiac rehabilitation program is designed to optimize a patient's physical, psychological, and social functioning. Health healthcare project manager work in cardiac rehabilitation programs and assist you with getting the treatments you need to get stronger and healthier - like exercise, healthy eating habits, and medications. Cardiac rehabilitation has been show to help people with heart problems live longer and have better life enjoyment than people who do not go to cardiac rehabilitation. Please contact the Cardiac Rehabilitation Program at [facility] at in two weeks if you have not heard from them.
--- NOTE | 2020-10-11 07:53 | CRPH1.INST_ITS ---
General Education CAD and cardiac anatomy and function:: Patient communicates acknowledgment, Needs reinforcement Explanation of diagnoses and procedures:: Patient communicates acknowledgment, Needs reinforcement Sign/Symptoms of [place]:: Patient communicates acknowledgment, Needs reinforcement Antiplatelet therapy: Patient communicates acknowledgment, Needs reinforcement Proper use of NTG-SL: Patient communicates acknowledgment, Needs reinforcement Emergency procedures and activation of EMS: Patient communicates acknowledgment, Needs reinforcement Compliance of all prescribed medications: Patient communicates acknowledgment, Needs reinforcement Smoking Patient Nicotine/Smoking Risk Factors Are:: Cigarettes Recommendations Include:: Smoking cessation strategies/Smoking packet, Second- hand smoke recommendation, Participation in a smoking cessation program, Previous smoker; encourage continued cessation Nicotine/Smoking Response Code:: Patient communicates acknowledgment, Needs reinforcement Dyslipidemia Recommendations Include:: Lipid profile provided Dyslipidemia Response Code:: Patient communicates acknowledgment, Needs reinforcement Overweight/Obesity Patient Overweight/Obesity Risk Factors Are:: BMI Normal [24-29 & > 65 years old] Recommendations Include:: Weight loss of 5-10%, Reduced calorie diet, Exercise 5-7 times/week Overweight/Obesity:: Patient communicates acknowledgment, Needs reinforcement
== END 2020-10-10 14:58 | disposition home or self-care (01) | DRG 247 ==
LOC: ED 05:24 → ICU 05:34
PROVIDERS: Admitting Provider Internal Medicine; Emergency Provider Emergency Medicine; PCP Family Medicine; Referring Provider Internal Medicine Interventional Cardiology; Visit Provider Internal Medicine
DX: I21.11 ST elevation (STEMI) myocardial infarction involving right coronary artery (principal); I25.10 Atherosclerotic heart disease of native coronary artery without angina pectoris; E78.5 Hyperlipidemia, unspecified; E11.9 Type 2 diabetes mellitus without complications; F17.210 Nicotine dependence, cigarettes, uncomplicated
CPT/HCPCS: 71045; 80048; 82465; 83718; 84478; 84484; 85025; 85027; 85610; 85730; 92941; 93005; 93306; 93458; 97802; 99285; 99406; C1874; J7030; J7050; Q9967; A4216; C1725; C1769; C1887; C1894; C9606; J1327

== ENCOUNTER → 2020-10-21 08:13 | Outpatient (CLI) | payer MEDICARE, SELFPAY ==
[2020-10-09 08:20] VITALS: BMI 27.3
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
--- NOTE | 2020-10-21 08:17 | CR.ITP_ITS ---
Diagnosis - General Information Admitting Diagnosis: Acute DC (STEMI), PCI w/coronary stenting Personal Learning Style:: Audio/Visual, Written Barriers to Learning: Vision Impairment Stage of change r/t lifestyle modifications:: Action Gave educational material for:: Treating Heart Disease, Emotions & Heart Disease, Stress Management & Relaxation, Sleep Disorders & Heart Disease, How The Heart Works, What it means to have Heart Disease, How Coronary Artery Disease is Diagnosed, Heart Procedures, What Heart Medications Do, Risk Factors & Modifications, Living an Active Life, Nutrition - Education/Goals Individual Counseling: Initial Assessment: Nicotine/Smoking, High Blood Pressure, Diabetes - Glucose 104, Hypertension - 106/63 Cardiac Rehabilitation Goals: 1. Maintain the individual as the primary focus of care. 2. To improve the patient's quality of life. 3. Identification of cardiac risk factors and provide cardiac risk factor management. 4. Enhance the psychosocial status of the patient. 5. Reconditioning enough to allow the patient to resume customary activities. 6. Control symptoms of cardiac disease Personal Goals: Initial Assessment: Quit smoking (participate in smoking cessation - last cigarette was on 10/09/2020., Improve management of stress and emotions, Improve energy level, Participate in home exercise program, Get back to work, or to resume activities faster, Improve knowledge of cardiac disease, Improve muscle strength and endurance, Improve diet and eating habits (eat healthier), Control risk factors (learn risk factor modification) Scale for measuring improvement of personal goals: Enter appropriate number in Comments. 2 = Unchanged. 3 = Slightly Better. 4 = Moderate Improvement. 5 = Met my Goal - Diagnosis & Disease Process Outcomes/Goals: Pt IDs own risk factors & lifestyle modifications by Session 10, Verbalizes symptoms of angina & response by session 3., Pt independently manages Plan/Interventions: Assist Pt to ID & engage in lifestyle modification to reduce CVD risk, Instruct on individual risk factors, Review symptoms of angina & emergency actions, Review secondary diagnosis & identify educational needs. - Safety Referral to Physical Therapy: No Referral to [facility] Case Management: No Fall Risk Assessed:: Yes Assistive Devices:: None Exercise - Initial Assessment - Visit Date of Eval: 10/21/20 Session #:: 0 - Pre-cardiac rehab evaluation Mets: Pre-: >7 METS for 30 minutes by discharge - Physician Prescribed Exercise Modalities: Treadmill, Rower, Airdyne, NuStep Frequency: 3x/week for 12 weeks [36 sessions] Intensity: 60-80% of age predicted maximum heart rate reserve Current METSs:: 4.0 Target Heart Rate:: 100-130 Resting Blood Pressure: 106/63 EKG Type: Sinus Bradycardia - Outcomes & Goals Goals:: Verbalizes understanding of THR, RPE & goal METS by session 6, Documents in home exercise log/reports 30 min aerobic 5 day/wk by DC, Demonstrates accurate pulse taking by DC - Intervention & Plan Exercise Program Goals: Instruct on personal THR & RPE, Instruct on MET level & personal MET goal, Show patient to take own pulse /validate performance until accurate, Instruct on home exercise - Physical Activity Home Exercise Physical Activity - Home Exercise: Safe Exercise, Warm-up, Self-monitoring, Cool-Down, Home Exercise > 30 min Daily, Sitting Time <3 hours/daily - Outcomes & Goals Outcomes/Goals: Demonstrates correct Warm-up/exercise Cool-Down (S3) if = 2.5 METs, Verbalizes symptoms of exercise intolerance by Session 3 (S3), Demonstrate safe equipment use (S3) & follows exercise prescrition (6) - Intervention & Plan Plan/Intervention: Instruct warm-up & cool-down if exercising at > 2 METs, Instruct on symptoms of exercise intolerance & actions to take, Instruct & monitor on saf, Assess intial functional capacity & safety risk Nutrition - Initial Assessment - Program Goals Nutrition Program Goals: LDL <100 optimal. 100 - 129 Near optimal. 130 - 159 Borderline High. 160 - 189 High. Total Cholesterol <200 desirable. 200 - 239 Borderline High. >/= 240 High. HDL < 40 Low >/=60 High. Triglycerides <150 desirable. <199 optimal. VlDL 5 - 40. HgbA1C <7%. BMI <25 Patient has diagnosis of Hyperlipidemia (ICD E78)?: Yes - Visit Date of Assessment:: 10/21/20 Session #:: 0 - Pre-cardiac rehab evaluation - Cholesterol/Lipids Triglycerides (mg/dL): 190 Total Cholesterol (mg/dL): 220 HDL Cholesterol (mg/dL): 31 Determine presence & major risk factors that modify LDL goal: Cigarette smoking, Low HDL cholesterol <40 mg/dL*, Family history of premature CHD in Male < 55 years: female <65 yearsFa, Age men > 45 years; women >/= 55 years Outcomes/Goals: Pt IDs own risk factors & lifestyle modifications by Session 10, Verbalizes symptoms of angina & response by session 3., Pt independently manages Intervention/Plan: Instruct on personal lipid levels & lipid goals/NCEP guidelines, Instruct on cholesterol Referral to dietitian:: Yes - Medical NutritionTherapy - DM II associated with hyperlipidemia - Diabetes (Other Core Measures) Diabetes Type: Diagnosis Type II ICD-10 E11 Insulin dependent injection/pump?: No Non-Insulin Dependent?: No Do you monitor your blood sugar at home?: No Referral to Diabetic Clinic:: Yes - Weight Mgt (Other Care) Not Applicable: Yes Height: 5 ft 9 in Weight:: 183 lb 9.6 oz BMI: 27.1 Diagnosis Overweight/Obesity BMI> 30% ICD-10 E66: No Diagnosis High BMI/Morbid Obesity BMI> 35% ICD-10 Z68: No Outcomes/Goals: Pt sets, maintains & shows weight loss goal & trend during rehab Intervention/Plan: Instruct on ideal BMI & set weight loss goal w/patient - Healthy Eating Habits Will attend diet classes:: Yes Outcomes/Goals:: Consume diet rich in vegs,fruits,whole grain/high fiber,fish,lean meat, Limit sat/trans fats,cholesterol & added salts & sugars Intervention/Plan:: Assess current eating habits - Education Gave educational materials for:: Healthy eating Nutrition - 30-Day Assessment Nutrition - 60-Day Assessment Nutrition - 90-Day Assessment Nutrition - Final Assessment Medical - Initial Assessment - Visit Date of Eval: 10/21/20 Session #:: 0 - pre cardiac rehab evaluation - Medication Compliance Preventative Medication(s):: Aspirin, Ticagrelor/P2Y12 inhibitor, Statin/lipid, Beta dilip H/O mental health issues: depression, anxiety, or addiction?: No Doesn?t believe in the benefits of treatment?: No Believes medications are unnecessary or harmful?: No Has a concern about medication side effects?: No Expresses concern over the cost of medications?: No Outcomes/Goals: Verbalizes medications,desired effect & common side effects @ DC, Pt self-reports following medication regimen, Keeps card in wallet w/medications listed by DC Interventions/plans: Instruct on medication effects & side effects, Review medication list w/patient every two weeks, Instruct importance of taking meds as ordered & assist problem solving - Tobacco Use Tobacco Use: Cigarettes How many cigarettes do you smoke per day?: 10 Years Smokin Do you use smokeless tobacco?: No Outcomes/Goals: Smoking cessation achieved or maintained by discharge, Identify aids/strategies for achieving smoking cessation by session 6 Interventions/plan: Instruct on effects of smoking & provide smoking cessation r esource, Assist pt to set quit date & provide encouragement, Assist pt to develop strategies to achieve/maintain quit date, Assist pt w/nicotine replacement & medication for cessation success - Hypertension Resting Blood Pressure:: 106/63 [place] [employer] Hypertension Guidelines: [place] [employer] Hypertension Guidelines. Normal BP Less than 120/80. Elevated BP 120/80. Hypertension Stage 1: BP 130-139/80-89. Hypertesnion Stage 2: BP 140 or higher/90 or higher. Hypertension Crisis: BP higher than 180/120 Outcomes/Goals: Able to verbalize/achieve optimal blood pressure <130/80, Incorporates diet changes & exercise for blood pressure control by DC Interventions/plan: Instruct on optimal blood pressure, hypertension & medications, Instruct on effects of sodium, alcohol, stress, exercise &hypertension - Tobacco Cessation Referral Smoking Cessation Referral:: Yes Individual Education/Counseling:: Yes Education Schedule Given:: Yes Medical- 30-Day Assessment Medical- 60-Day Assessment Medical- 90-Day Assessment Medical - Final Assessment Psychosocial - Initial Assess - VIsit Date of Eval: 10/21/20 Session #:: 0 - Pre-cardiac rehab evaluation Not Applicable: Yes - Psychosocial Test Tool Used:: Holly Velasquez QOL Cardiac, PHQ-9 Questionnaire phq-9 Severity: Severity. 1-4 Minimal Depression. 5-9 Mild Depression. 10-14 Moderate Depression. 15-19 Moderately Sever Depression. 20-27 Severe Depression. Rule: - Referral to Behavioral Health PS - Interventions: Yes Attend Stress Management Classes, No Referral to Behavioral Health if PHQ-9 score >9:, No Referral to [facility], No Referral to Physician if PHQ-9 if score is 5-9: - Outcomes/Goals: See list Psychosocial Outcomes/Goals:: ID's personal stressors & 2 strategies to manage stress by discharge - Intervention/Plan: See List Interventions/Plan:: Assess stressors,coping strategies & signs of derpression on admission, Instruct/assist pt to develop coping & personal stress Mgt s trategies, Instruct patient to recognize signs & symptoms of depression, Instruct patient to recog Psychosocial - 30-Day Assess Psychosocial - 60-Day Assess Psychosocial - 90-Day Assess Psychosocial - Final Assessmen Patient Health Questionnaire Initial Assessment 1. Little interest or pleasure in doing things: Not at all 2. Feeling down, depressed, or hopeless: Not at all 3. Trouble falling or staying asleep, or sleeping too much: Not at all 4. Feeling tired or having little energy: Not at all 5. Poor appetite or overeating: Not at all 6. Feeling bad about yourself -- or that you are a failure or have let yourself or your family down: Not at all 7. Trouble concentrating on things, such as reading the newspaper or watching television: Not at all 8. Moving or speaking so slowly that other people could have noticed. Or the opposite - being so fidgety or restless that you have been moving around a lot more than usual: Not at all 9. Thoughts that you would be better off , or of hurting yourself in some way: Not at all How difficult have these problems made it for you to do your work, take care of things at home, or get along with other people?: Not difficult at all Total Score: 0 MASOUD-Q SV Test - Statements CAD is a disease of the arteries in the heart: False Examples of risk factors for heart disease: True Angina is chest pain or discomfort: I Don't Know The benefits of resistance training include: True Eating more meat and dairy products: False Anti-platelet medications such as aspirin are important: True The only effective way to manage stress: I Don't Know An exercise warm-up slowly increases heart rate: True Prepared, processed foods usually have high sodium: True Depression is common after a heart attack: I Don't Know The statin medications lower cholesterol: True To control blood pressure, lower the amount of sodium: I Don't Know If someone gets chest discomfort during walking: I Don't Know Transfats are partially hydrogenated vegetable oils: I Don't Know Sleep apnea that is not treated increases the risk: True To control cholesterol, one should become a vegetarian: I Don't Know Someone knows if he/she is exercising at the right level: I Don't Know Diabetes cannot be prevented with exercise & health eating: True Stress is a large risk for heart attack: True A diet that can help lower blood pressure is rich in: True - Total Score Total Correct Responses: 10 Self-Efficacy Initial Assessment We would like to know how confident you are in doing certain activities. Please select your confidence level for:: Select your confidence level for the following using the scale 1-10 where 1 is not at all confident and 10 is totally confident. Your score is the average of all 6 responses. Fatigue: How confident are you that you can keep the fatigue caused by your disease from interfering with the things you want to do? Select Number: 10 Physical Discomfort or Pain: How confident are you that you can keep the physical discomfort or pain of your disease from interfering with the things you want to do? Select Number: 10 Emotional Distress: How confident are you that you can keep the emotional distress caused by your disease from interfering with the things you want to do? Select Number: 10 Other Symptoms or Health Problems: How confident are you that you can keep other symptoms or health problems from interfering with the things you want to do? Select Number: 10 Different Tasks and Activities: How confident are you that you can do the different tasks and activities needed to manage your health condition so as to reduce your need to see a doctor? Select Number: 10 Medication: How confident are you that you can do things other than just taking medication to reduce how much your illness affects your everyday life? Select Number: 10 Total Score:: 10 Nutrition Survey - Nutrition Survey Initial Have you lost >10 lbs over the past 2 months without trying?: No Are you following a special diet at home for diabetes, low fat, or low salt?: No Are you interested in meeting with a dietitian for help understanding your diet?: No Do you eat less than 3 meals a day?: No Do you eat fatty meats (singer, sausage, ribs, etc), fried foods, desserts, large amounts of salad dressings, margarine, butter, or cheese most days?: Yes Do you have food allergies? [Enter types in comment field]: No Do you eat in restaurants more than 3 times a week?: No Do you season food with salt, seasoning salt, or garlic salt?: No Do you used canned, boxed, frozen meals, or soups, seasoning packets?: No Total Score:: 1
[2020-10-21 08:44] VITALS: BP 106/63; PULSE 60; RESP 16; TEMP 36.4; O2SAT 97; BMI 27.1
[2020-10-21 09:58] VITALS: BP 106/63; BMI 27.1
== END ==
PROVIDERS: PCP Family Medicine; Referring Provider Internal Medicine Cardiovascular Disease; Visit Provider Internal Medicine Cardiovascular Disease
DX: I25.10 Atherosclerotic heart disease of native coronary artery without angina pectoris (principal); I25.2 Old myocardial infarction; H91.93 Unspecified hearing loss, bilateral; E03.9 Hypothyroidism, unspecified; G47.30 Sleep apnea, unspecified; Z86.16 Personal history of COVID-19; Z95.5 Presence of coronary angioplasty implant and graft; Z79.82 Long term (current) use of aspirin; Z79.899 Other long term (current) drug therapy; Z87.891 Personal history of nicotine dependence

== ENCOUNTER 2021-04-29 09:28 | Outpatient (CLI) | payer MEDICARE, SELFPAY ==
[2020-10-21 09:58] VITALS: BMI 27.1
[2021-04-29 12:12] LABS: Absolute Lymphocyte Count 1.78 X10^3/uL (0.83-4.51); Absolute Neutrophil Count 3.5 X10^3/uL (2.0-7.7); Basophil# 0.05 X10^3/uL; Basophil% 0.8 % (0-1); Eosinophil# 0.11 X10^3/uL; Eosinophils% 1.8 % (0-5); Hematocrit 42.8 % (40-54); Hemoglobin 14.1 g/dL (13.0-16.5); Lymphocyte # 1.78 X10^3/ul (0.83-4.51); Lymphocyte % 29.3 % (19-41); Mean Corp Hgb Conc 32.9 g/dL (32-36); Mean Corpuscular Volume 97.1 fL (80-94); Mean Platelet Vol. 11.2 fl (6.2-12.0); Monocyte# 0.65 X10^3/uL; Monocyte% 10.7 % (0-10); NRBC Flagged by Analyzer 0 % (0-5); Neutrophil # 3.47 X10^3/uL (2.7-7.7); Neutrophil % 57.1 % (47-70); Platelet Count 231 K/mm3 (150-450); RBC Distribution Width CV 13.2 % (11.6-14.6); Red Blood Count 4.41 M/mm3 (4.6-6.2); White Blood Count 6.1 K/mm3 (4.4-11.0)
[2021-04-29 12:43] LABS: ALB/GLOB Ratio 0.9 RATIO (0.9-2.4); AST(SGOT) 17 U/L (15-37); Alanine Aminotransfer ALT/SGPT 26 U/L (16-61); Albumin, Serum 3.4 g/dL (3.2-5.0); Alkaline Phosphatase 70 U/L (45-117); Anion Gap 3 (5-15); BUN 17 mg/dL (7-18); BUN/Creat Ratio 17.4 RATIO (10-20); Calcium,Total 9.1 mg/dL (8.5-10.1); Chloride 107 mmol/L (98-107); Creatinine, Serum 0.98 mg/dL (0.70-1.30); EST Glomerular Filtration Rate 81 mL/min (>60); Est Glom Filt Rate - Afr Amer 98 mL/min (>60); Globulin 3.6 g/dL (2.2-4.2); Glucose 93 mg/dL (74-106); Potassium 4.5 mmol/L (3.5-5.1); Sodium Level 137 mmol/L (136-145); Thyroid Stim Hormone (TSH) 0.02 uIU/mL (0.358-3.74)
== END 2021-04-29 23:59 | disposition home or self-care (01) ==
LOC: BIMLAB 09:28
PROVIDERS: PCP Internal Medicine; Referring Provider Internal Medicine; Visit Provider Internal Medicine
DX: E03.9 Hypothyroidism, unspecified (principal)
CPT/HCPCS: 36415; 80053; 84443; 85025

== ENCOUNTER 2021-05-26 10:43 | Outpatient (CLI) | payer MEDICARE, SELFPAY ==
[2020-10-21 09:58] VITALS: BMI 27.1
[2021-05-26 12:32] LABS: Thyroid Stim Hormone (TSH) 0.03 uIU/mL (0.358-3.74)
== END 2021-05-26 23:59 | disposition home or self-care (01) ==
LOC: BIMLAB 10:43
PROVIDERS: PCP Internal Medicine; Referring Provider Internal Medicine; Visit Provider Internal Medicine
DX: E03.9 Hypothyroidism, unspecified (principal)
CPT/HCPCS: 36415; 84443

== ENCOUNTER → 2021-07-19 | Outpatient (CLI) | payer MEDICARE, SELFPAY ==
[2020-10-21 09:58] VITALS: BMI 27.1
[2021-07-19 12:49] LABS: Thyroid Stim Hormone (TSH) 0.07 uIU/mL (0.358-3.74)
== END | disposition home or self-care (01) ==
LOC: BIMLAB 09:54
PROVIDERS: PCP Internal Medicine; Referring Provider Internal Medicine; Visit Provider Internal Medicine
DX: E03.9 Hypothyroidism, unspecified (principal)
CPT/HCPCS: 36415; 84443

== ENCOUNTER → 2021-08-08 | Outpatient (CLI) | payer MEDICARE, SELFPAY ==
[2020-10-21 09:58] VITALS: BMI 27.1
--- NOTE | 2021-08-08 13:01 | ECHOD_ITS ---
Reason For Study: STEMI Procedure This was a 2D Doppler, Color Flow transthoracic echocardiogram. The exam was of adequate technical quality. Exam performed in department. Left Ventricle Normal LV size. Mid cavitary false tendon noted. Segmental dysfunction with preserved ejection fraction (see wall motion). The estimated ejection fraction is 65 %. No evidence for diastolic dysfunction. Infero-Basal: Hypokinetic. Right Ventricle Normal RV size. Normal systolic function. Atria Normal left atrium. Normal right atrium. No doppler evidence for ASD. Mitral Valve There is no mitral annular calcification. Normal mitral valve. Trivial mitral valve insufficiency. Tricuspid Valve Normal tricuspid valve. Trivial tricuspid valve insufficiency. Right ventricular systolic pressure estimated to be 24 mmHg. Aortic Valve Trisinus/trileaflet aortic valve. Normal aortic valve. Trivial aortic valve insufficiency. Pulmonic Valve The pulmonic valve is not well visualized. Trivial pulmonic valve insufficiency. Great Vessels Normal sized aortic root. Pericardium/Pleural No pericardial effusion. MMode/2D Measurements & Calculations LVIDd: 4.4 cm IVSd: 1.3 cm Ao root diam: 3.8 cm LVIDs: 2.7 cm LVPWd: 1.3 cm LA dimension: 3.2 cm RVDd: 3.3 cm FS: 38.8 % LAV(MOD-bp): 43.2 ml LA A4 area: 15.7 cm2 RA A4 area: 18.2 cm2 LAV(MOD-bp) Indexed: 21.8 ml/m2 LAV(MOD-sp2): 47.6 ml LAV(MOD-sp4): 35.7 ml Time Measurements MV dec time: 0.55 sec Doppler Measurements & Calculations MV E max simon: 53.9 cm/sec Lat Peak E' Simon: 7.9 cm/sec Med Peak E' Simon: 5.1 cm/sec MV A max smion: 93.6 cm/sec E/E' lat: 6.8 E/E' med: 10.6 MV E/A: 0.58 MV V2 max: 91.1 cm/sec MV P1/2t max simon: 55.5 cm/sec Ao V2 max: 152.1 cm/sec MV max P.3 mmHg MV P1/2t: 123.1 msec Ao max P.2 mmHg MV V2 mean: 39.1 cm/sec MV dec slope: 132.2 cm/sec2 MV mean P.74 mmHg MVA(P1/2t): 1.8 cm2 MV V2 VTI: 26.0 cm LV V1 max: 135.2 cm/sec PA V2 max: 108.8 cm/sec TR max simon: 227.7 cm/sec LV V1 max P.3 mmHg TR max P.7 mmHg ECHO/Echo Complete Interpretation Summary Segmental dysfunction with preserved ejection fraction (see wall motion). The estimated ejection fraction is 65 %. Mid cavitary false tendon noted. Trivial mitral valve insufficiency. Trivial tricuspid valve insufficiency. Trivial aortic valve insufficiency. Trivial pulmonic valve insufficiency. Right ventricular systolic pressure estimated to be 24 mmHg. No evidence for diastolic dysfunction. Ordering Physician: Vijay Joseph Referring Physician: Madeleine Grier Performed By: Rai Fletcher RCS
== END | disposition home or self-care (01) ==
LOC: CVS 13:00
PROVIDERS: PCP Internal Medicine; Referring Provider Internal Medicine Cardiovascular Disease; Visit Provider Internal Medicine Cardiovascular Disease
DX: I21.3 ST elevation (STEMI) myocardial infarction of unspecified site (principal); I25.10 Atherosclerotic heart disease of native coronary artery without angina pectoris
CPT/HCPCS: 93306

== ENCOUNTER → 2022-01-16 | Outpatient (CLI) | payer MEDICARE, SELFPAY ==
[2020-10-21 09:58] VITALS: BMI 27.1
[2022-01-16 12:50] LABS: ALB/GLOB Ratio 0.9 RATIO (0.9-2.4); AST(SGOT) 18 U/L (15-37); Alanine Aminotransfer ALT/SGPT 26 U/L (16-61); Albumin, Serum 3.5 g/dL (3.2-5.0); Alkaline Phosphatase 75 U/L (45-117); Anion Gap 6 (5-15); BUN 15 mg/dL (7-18); BUN/Creat Ratio 14.9 RATIO (10-20); Calcium,Total 8.9 mg/dL (8.5-10.1); Chloride 103 mmol/L (98-107); Cholesterol 222 mg/dL (200); Creatinine, Serum 1.01 mg/dL (0.70-1.30); EST Glomerular Filtration Rate 78 mL/min (>60); Est Glom Filt Rate - Afr Amer 94 mL/min (>60); Globulin 3.7 g/dL (2.2-4.2); Glucose 89 mg/dL (74-106); High Density Lipoprotein 41 mg/dL; PSA,Total - Annual Screen 1.41 ng/mL (0.00-4.00); Potassium 4.3 mmol/L (3.5-5.1); Protein, Total 7.2 g/dL (6.4-8.2); Sodium Level 138 mmol/L (136-145); Thyroid Stim Hormone (TSH) 0.45 uIU/mL (0.358-3.74); Triglycerides 161 mg/dL; Very Low Density Lipoprotein 32 mg/dL (5-40)
== END | disposition home or self-care (01) ==
LOC: BIMLAB 11:18
PROVIDERS: PCP Internal Medicine; Referring Provider Internal Medicine; Visit Provider Internal Medicine
DX: E78.5 Hyperlipidemia, unspecified (principal); N40.0 Benign prostatic hyperplasia without lower urinary tract symptoms; Z12.5 Encounter for screening for malignant neoplasm of prostate
CPT/HCPCS: 36415; 80053; 80061; 84153; 84443; G0103

== ENCOUNTER → 2022-10-31 | Outpatient (CLI) | payer MEDICARE, SELFPAY ==
[2020-10-21 09:58] VITALS: BMI 27.1
--- NOTE | 2022-11-01 12:40 | STRESSREP ---
Stress Test Report Date: 10/31/2022 Procedure: Exercise tolerance test/imaging study Indications: Chest pain. History of CAD. Consent: Per the patient Procedure: The patient exercised on a Wilmer protocol for 6 minutes and 15 seconds achieving a peak heart rate of 130 bpm (86% predicted maximal heart rate) with a peak blood pressure 162/84 mmHg and a peak MET capacity of 7.7 METs. The baseline ECG demonstrated sinus rhythm. The peak exercise ECG demonstrated no ischemic changes. There were no cardiac dysrhythmias pretest, during exercise, or recovery. The functional capacity was considered average. There was no complaint of chest discomfort during exercise or recovery. The examination was discontinued secondary to target heart rate being achieved. The patient was injected with 14.1 mCi of technetium 99m Cardiolite and subsequently rest SPECT Cardiolite nuclear imaging was obtained in the horizontal long, vertical long, and short axis views. Post-exercise, the patient was injected with 43.3 mCi of technetium 99m Cardiolite and subsequently stress SPECT Cardiolite nuclear imaging was obtained in the horizontal long, vertical long, and short axis views. A gated Cardiolite study at peak stress was obtained. Rest and stress SPECT Cardiolite nuclear imaging status post realignment, normalization, and attenuation correction, demonstrates mildly decreased uptake in the inferior wall suggestive of previous nontransmural myocardial infarction. There is evidence of mild gera-infarct ischemia. There is end systolic thickening and brightening. The gated Cardiolite study demonstrates myocardial thickening and inward wall motion. The reported LVEF is 73%. Impression: 1. Technically adequate (percent predicted maximal heart rate greater than 85%) exercise tolerance test 2. Peak exercise ECG no ischemic changes 3. There were no cardiac dysrhythmias pretest, during exercise, or recovery 4. Rest and stress SPECT Cardiolite nuclear imaging demonstrate evidence of nontransmural inferior infarct with minimal to mild gera-infarct ischemia. 5. The gated Cardiolite study reports an LVEF of 73%. This note was generated with [employer]rape[employer] software. It may contain incorrect words, spelling, and punctuation that were not noted in checking the note before signing.
== END | disposition home or self-care (01) ==
LOC: CVS 07:07
PROVIDERS: PCP Internal Medicine; Referring Provider Nurse Practitioner Gerontology; Visit Provider Nurse Practitioner Gerontology
DX: R07.9 Chest pain, unspecified (principal); I25.10 Atherosclerotic heart disease of native coronary artery without angina pectoris; Z95.5 Presence of coronary angioplasty implant and graft
CPT/HCPCS: 78452; 93017; A9500; A4216

== ENCOUNTER → 2023-03-28 | Outpatient (CLI) | payer MEDICARE, SELFPAY ==
[2020-10-21 09:58] VITALS: BMI 27.1
[2023-03-28 12:38] LABS: Absolute Lymphocyte Count 2.03 X10^3/uL (0.83-4.51); Absolute Neutrophil Count 2.5 X10^3/uL (2.0-7.7); Basophil# 0.04 X10^3/uL; Basophil% 0.8 % (0-1); Eosinophil# 0.11 X10^3/uL; Eosinophils% 2.2 % (0-5); Hematocrit 42.7 % (40-54); Hemoglobin 13.9 g/dL (13.0-16.5); Lymphocyte # 2.03 X10^3/ul (0.83-4.51); Mean Corp Hgb Conc 32.6 g/dL (32-36); Mean Corpuscular Hgb 31.8 pg (27.0-32.0); Mean Corpuscular Volume 97.7 fL (80-94); Mean Platelet Vol. 11.3 fl (6.2-12.0); Monocyte# 0.43 X10^3/uL; Monocyte% 8.5 % (0-10); NRBC Flagged by Analyzer 0 % (0-5); Neutrophil # 2.45 X10^3/uL (2.7-7.7); Neutrophil % 48.3 % (47-70); Platelet Count 209 K/mm3 (150-450); RBC Distribution Width CV 13.5 % (11.6-14.6); RBC Distribution Width SD 48.8 fl (35.1-43.9); Red Blood Count 4.37 M/mm3 (4.6-6.2); White Blood Count 5.1 K/mm3 (4.4-11.0)
[2023-03-28 13:42] LABS: AST(SGOT) 22 U/L (15-37); Alanine Aminotransfer ALT/SGPT 31 U/L (16-61); Albumin, Serum 3.5 g/dL (3.2-5.0); Alkaline Phosphatase 63 U/L (45-117); Anion Gap 4 (5-15); BUN 20 mg/dL (7-18); Bilirubin, Direct 0.18 mg/dL (0.00-0.30); Calcium,Total 9.1 mg/dL (8.5-10.1); Chloride 108 mmol/L (98-107); Cholesterol 231 mg/dL (200); Creatinine, Serum 1.11 mg/dL (0.70-1.30); EST Glomerular Filtration Rate 70 mL/min (>60); Est Glom Filt Rate - Afr Amer 84 mL/min (>60); Globulin 3.5 g/dL (2.2-4.2); Glucose 107 mg/dL (74-106); High Density Lipoprotein 45 mg/dL; Potassium 4.6 mmol/L (3.5-5.1); Sodium Level 139 mmol/L (136-145); Thyroid Stim Hormone (TSH) 2.53 uIU/mL (0.358-3.74); Triglycerides 115 mg/dL; Very Low Density Lipoprotein 23 mg/dL (5-40)
== END | disposition home or self-care (01) ==
LOC: BIMLAB 08:37
PROVIDERS: PCP Internal Medicine; Visit Provider Internal Medicine
DX: E03.9 Hypothyroidism, unspecified (principal); N40.0 Benign prostatic hyperplasia without lower urinary tract symptoms; E78.5 Hyperlipidemia, unspecified
CPT/HCPCS: 36415; 80053; 80061; 82248; 84153; 84443; 85025; G0103

== ENCOUNTER → 2023-06-25 | Outpatient (CLI) | payer MEDICARE, SELFPAY ==
[2020-10-21 09:58] VITALS: BMI 27.1
--- NOTE | 2023-06-25 08:10 | ECHOD_ITS ---
Reason For Study: CORONARY ARTERY DISEASE Procedure This was a 2D Doppler, Color Flow transthoracic echocardiogram. Exam performed in department. Left Ventricle Normal LV size. Mild concentric left ventricular hypertrophy. The left ventricular ejection fraction is 65 %. Normal diastology for age. Right Ventricle Normal right ventricle. Atria The left and right atria are normal. Mitral Valve Trivial mitral valve insufficiency. Tricuspid Valve Mild tricuspid valve insufficiency. Normal pulmonary artery pressure. Aortic Valve Trisinus/trileaflet aortic valve. Mild (1+) aortic valve insufficiency. Pulmonic Valve Normal pulmonic valve. Great Vessels Mildly dilated aortic root. Pericardium/Pleural No pericardial effusion. MMode/2D Measurements & Calculations LVIDd: 4.4 cm IVSd: 1.2 cm LVOT diam: 1.9 cm LVIDs: 2.9 cm LVPWd: 1.2 cm LVOT area: 2.9 cm2 RVDd: 3.3 cm FS: 33.2 % Ao root diam: 4.0 cm LAV(MOD-bp): 43.3 ml LVAd ap4: 23.8 cm2 LAV(MOD-bp) Indexed: 21.9 ml/m2 LVLd ap4: 7.4 cm LAV(MOD-sp2): 45.5 ml EDV(MOD-sp4): 66.4 ml LAV(MOD-sp4): 39.2 ml EDV(sp4-el): 64.9 ml LVAs ap4: 13.3 cm2 LVLs ap4: 6.7 cm ESV(MOD-sp4): 23.3 ml ESV(sp4-el): 22.5 ml EF(MOD-sp4): 64.9 % EF(sp4-el): 65.4 % LVAd ap2: 24.6 cm2 SV(MOD-sp4): 43.1 ml SV(MOD-sp2): 43.4 ml LVLd ap2: 7.6 cm EDV(MOD-sp2): 69.3 ml EDV(sp2-el): 67.5 ml LVAs ap2: 14.2 cm2 LVLs ap2: 6.6 cm ESV(MOD-sp2): 25.9 ml ESV(sp2-el): 25.7 ml EF(MOD-sp2): 62.7 % SV(sp4-el): 42.5 ml LA dimension(2D): 3.2 cm LA A4 area: 16.5 cm2 RA A4 area: 17.7 cm2 TAPSE: 2.8 cm Time Measurements MV dec time: 0.29 sec Doppler Measurements & Calculations MV E max simon: 50.5 cm/sec Lat Peak E' Simon: 8.6 cm/sec Med Peak E' Simon: 8.2 cm/sec MV A max simon: 52.7 cm/sec E/E' lat: 5.9 E/E' med: 6.1 MV E/A: 0.96 Ao V2 max: 149.7 cm/sec LV V1 max: 106.1 cm/sec MV dec slope: 175.1 cm/sec2 Ao max P.0 mmHg LV V1 max P.5 mmHg Ao V2 mean: 103.0 cm/sec LV V1 mean P.9 mmHg Ao mean P.9 mmHg LV V1 mean: 82.5 cm/sec Ao V2 VTI: 33.7 cm LV V1 VTI: 23.9 cm AV (velocity ratio): 0.71 JULIANN(I,D): 2.1 cm2 JULIANN(V,D): 2.1 cm2 SV(LVOT): 69.5 ml PA V2 max: 90.1 cm/sec TR max simon: 261.7 cm/sec PA max PG (full): 1.4 mmHg TR max P.4 mmHg ECHO/Echo Complete Interpretation Summary Mild concentric left ventricular hypertrophy. The left ventricular ejection fraction is 65 %. Mild tricuspid valve insufficiency. Mild (1+) aortic valve insufficiency. Mildly dilated aortic root. Ordering Physician: Marquez Guan Referring Physician: Madeleine Grier Performed By: Trixie Ortiz RDCS
== END | disposition home or self-care (01) ==
LOC: CVS 08:06
PROVIDERS: PCP Internal Medicine; Referring Provider Internal Medicine Cardiovascular Disease; Visit Provider Internal Medicine Cardiovascular Disease
DX: E78.5 Hyperlipidemia, unspecified (principal); R03.0 Elevated blood-pressure reading, without diagnosis of hypertension; I25.10 Atherosclerotic heart disease of native coronary artery without angina pectoris; I10 Essential (primary) hypertension
CPT/HCPCS: 93306; J0153

== ENCOUNTER → 2023-10-25 | Outpatient (CLI) | payer MEDICARE, SELFPAY ==
[2020-10-21 09:58] VITALS: BMI 27.1
--- NOTE | 2023-10-25 17:46 | CT_ITS ---
HISTORY: One pack per day x40 years. TECHNIQUE: Helically acquired images were obtained of the chest without contrast. A radiation dose optimization technique was used for this scan. 805 images. COMPARISON: XR 10/09/2020. FINDINGS: LARGE AIRWAYS: Grossly patent with mild adherent material in the trachea. LUNGS: 2 mm noncalcified left apical nodule on image 31/226. PLEURA: No pneumothorax or significant pleural effusion. HEART/PERICARDIUM: Heart within normal limits in size with coronary artery calcification. No pericardial effusion. VESSELS: Thoracic aorta nondilated. MEDIASTINUM/GAY: Borderline enlarged right paratracheal lymph node. Small calcified left mediastinal lymph nodes. UPPER ABDOMEN: Right upper quadrant calcification on the security specialist image. BONES: Degenerative change. CT/Low Dose CT Lung Screening IMPRESSION: Lung-RADS category 2: Continue annual screening with low dose CT. Electronically Signed: Kristal Horner MD at 11:50 EDT ,
== END | disposition home or self-care (01) ==
LOC: CT 17:46
PROVIDERS: PCP Internal Medicine; Referring Provider Nurse Practitioner; Visit Provider Nurse Practitioner
DX: F17.210 Nicotine dependence, cigarettes, uncomplicated (principal)
CPT/HCPCS: 71271

== ENCOUNTER → 2024-03-19 | Outpatient (CLI) | payer MEDICARE, SELFPAY ==
[2020-10-21 09:58] VITALS: BMI 27.1
[2024-03-19 12:29] LABS: Absolute Lymphocyte Count 1.61 X10^3/uL (0.83-4.51); Absolute Neutrophil Count 2.7 X10^3/uL (2.0-7.7); Basophil# 0.04 X10^3/uL; Basophil% 0.8 % (0-1); Eosinophil# 0.07 X10^3/uL; Eosinophils% 1.4 % (0-5); Hemoglobin 13.6 g/dL (13.0-16.5); Lymphocyte # 1.61 X10^3/ul (0.83-4.51); Lymphocyte % 32.9 % (19-41); Mean Corp Hgb Conc 32.4 g/dL (32-36); Mean Corpuscular Hgb 31.9 pg (27.0-32.0); Mean Corpuscular Volume 98.4 fL (80-94); Monocyte% 10.2 % (0-10); NRBC Flagged by Analyzer 0 % (0-5); Neutrophil # 2.66 X10^3/uL (2.7-7.7); Neutrophil % 54.5 % (47-70); Platelet Count 217 K/mm3 (150-450); RBC Distribution Width CV 13.2 % (11.6-14.6); RBC Distribution Width SD 47.9 fl (35.1-43.9); Red Blood Count 4.27 M/mm3 (4.6-6.2); White Blood Count 4.9 K/mm3 (4.4-11.0)
[2024-03-19 13:07] LABS: AST(SGOT) 14 U/L (15-37); Alanine Aminotransfer ALT/SGPT 18 U/L (16-61); Albumin, Serum 3.5 g/dL (3.2-5.0); Alkaline Phosphatase 63 U/L (45-117); Anion Gap 5 (5-15); BUN 19 mg/dL (7-18); BUN/Creat Ratio 18.6 RATIO (10-20); Calcium,Total 8.6 mg/dL (8.5-10.1); Chloride 111 mmol/L (98-107); Cholesterol 184 mg/dL (200); Creatinine, Serum 1.02 mg/dL (0.70-1.30); EST Glomerular Filtration Rate 77 mL/min (>60); Est Glom Filt Rate - Afr Amer 93 mL/min (>60); Globulin 3.6 g/dL (2.2-4.2); Glucose 69 mg/dL (74-106); High Density Lipoprotein 48 mg/dL; Potassium 4.4 mmol/L (3.5-5.1); Protein, Total 7.1 g/dL (6.4-8.2); Sodium Level 142 mmol/L (136-145); Triglycerides 74 mg/dL; Very Low Density Lipoprotein 15 mg/dL (5-40)
== END | disposition home or self-care (01) ==
LOC: BIMLAB 10:03
PROVIDERS: Internal Medicine Cardiovascular Disease; PCP Internal Medicine; Referring Provider Internal Medicine; Visit Provider Internal Medicine
DX: I25.10 Atherosclerotic heart disease of native coronary artery without angina pectoris (principal); E78.5 Hyperlipidemia, unspecified; I10 Essential (primary) hypertension; F17.210 Nicotine dependence, cigarettes, uncomplicated; E03.9 Hypothyroidism, unspecified
CPT/HCPCS: 36415; 80053; 80061; 84443; 85025

== ENCOUNTER → 2024-06-12 | Outpatient (CLI) | payer MEDICARE, SELFPAY ==
[2020-10-21 09:58] VITALS: BMI 27.1
--- NOTE | 2024-06-12 08:54 | ECHOD_ITS ---
Reason For Study Reason For Study: CAD Procedure This was a 2D Doppler, Color Flow transthoracic echocardiogram. Exam performed in department. Left Ventricle Normal LV size. Mild concentric left ventricular hypertrophy. The LV systolic function is normal. EF is 60 %. Stage 1 diastolic dysfunction. Right Ventricle Normal right ventricle. Atria The left and right atria are normal. Mitral Valve Trivial mitral valve insufficiency. Tricuspid Valve Mild tricuspid valve insufficiency. Right ventricular systolic pressure estimated to be 45 mmHg. Aortic Valve Trisinus/trileaflet aortic valve. Mild (1+) aortic valve insufficiency. Pulmonic Valve The pulmonic valve is not well visualized. Great Vessels Normal sized aortic root. Pericardium/Pleural No pericardial effusion. MMode/2D Measurements & Calculations LVIDd: 4.7 cm IVSd: 1.4 cm Ao root diam: 3.6 cm LVIDs: 2.6 cm LVPWd: 0.99 cm LA dimension: 3.5 cm RVDd: 3.8 cm FS: 45.1 % asc Aorta Diam: 3.9 cm LAV(MOD-bp): 47.3 ml LVAd ap4: 24.3 cm2 LAV(MOD-bp) Indexed: 23.5 ml/m2 LVLd ap4: 7.6 cm LAV(MOD-sp2): 46.0 ml EDV(MOD-sp4): 66.9 ml LAV(MOD-sp4): 43.0 ml EDV(sp4-el): 66.0 ml LVAs ap4: 14.2 cm2 LVLs ap4: 6.3 cm ESV(MOD-sp4): 28.1 ml ESV(sp4-el): 26.9 ml EF(MOD-sp4): 57.9 % EF(sp4-el): 59.3 % SV(MOD-sp4): 38.8 ml SV(sp4-el): 39.1 ml LA A4 area: 17.4 cm2 SI(MOD-sp4): 19.2 ml/m2 LA dimension(2D): 3.6 cm RA A4 area: 21.4 cm2 TAPSE: 2.8 cm Time Measurements MV dec time: 0.19 sec Doppler Measurements & Calculations MV E max simon: 55.9 cm/sec Lat Peak E' Simon: 10.6 cm/sec Med Peak E' Simon: 11.6 cm/sec MV A max simon: 69.3 cm/sec E/E' lat: 5.2 E/E' med: 4.8 MV E/A: 0.81 MV V2 max: 84.9 cm/sec MV P1/2t max simon: 68.9 cm/sec Ao V2 max: 136.8 cm/sec MV max P.9 mmHg MV P1/2t: 75.4 msec Ao max P.5 mmHg MV V2 mean: 41.4 cm/sec Ao V2 mean: 93.9 cm/sec MV mean P.80 mmHg MV dec slope: 267.6 cm/sec2 Ao mean P.1 mmHg MV V2 VTI: 28.7 cm MVA(P1/2t): 2.9 cm2 Ao V2 VTI: 32.7 cm AV (velocity ratio): 0.96 AI max simon: 482.0 cm/sec LV V1 max: 131.9 cm/sec PA V2 max: 93.6 cm/sec AI max P.9 mmHg LV V1 max P.0 mmHg LV V1 mean P.6 mmHg AI dec slope: 174.1 cm/sec2 LV V1 mean: 87.2 cm/sec AI P1/2t: 810.7 msec LV V1 VTI: 31.4 cm TR max simon: 276.0 cm/sec PI dec slope: 45.2 cm/sec2 TR max P.5 mmHg ECHO/Echo Complete Interpretation Summary Mild concentric left ventricular hypertrophy. The LV systolic function is normal. EF is 60 %. Stage 1 diastolic dysfunction. Mild tricuspid valve insufficiency. Right ventricular systolic pressure estimated to be 45 mmHg. Mild (1+) aortic valve insufficiency. Ordering Physician: Marquez Guan Referring Physician: Madeleine Grier Performed By: Rai Fletcher RCS
== END | disposition home or self-care (01) ==
PROVIDERS: PCP Internal Medicine; Referring Provider Internal Medicine Cardiovascular Disease; Visit Provider Internal Medicine Cardiovascular Disease
DX: I35.1 Nonrheumatic aortic (valve) insufficiency (principal); I25.10 Atherosclerotic heart disease of native coronary artery without angina pectoris
CPT/HCPCS: 93306

== ENCOUNTER → 2024-08-18 | Outpatient (CLI) | payer MEDICARE, SELFPAY ==
[2020-10-21 09:58] VITALS: BMI 27.1
[2024-08-18 18:06] LABS: Anion Gap 10 (5-15); BUN 19 mg/dL (4-19); BUN/Creat Ratio 15.5 RATIO (10-20); Calcium,Total 8.8 mg/dL (7.6-11.0); Carbon Dioxide 23.2 mmol/L (21.0-32.0); Chloride 106 mmol/L (98-108); Creatinine, Serum 1.21 mg/dL (0.70-1.20); EST Glomerular Filtration Rate 64 (>60); Glucose 101 mg/dL (70-99); Potassium 4.3 mmol/L (3.3-5.1); Sodium Level 140 mmol/L (133-145)
[2024-08-18 18:15] LABS: PSA,Total - Annual Screen 1.43 ng/mL (0.02-4.00)
[2024-08-18 18:21] LABS: Absolute Lymphocyte Count 1.78 X10^3/uL (0.83-4.51); Basophil# 0.04 X10^3/uL; Basophil% 0.7 % (0-1); Eosinophil# 0.08 X10^3/uL; Eosinophils% 1.5 % (0-5); Hematocrit 38.6 % (40-54); Lymphocyte # 1.78 X10^3/ul (0.83-4.51); Lymphocyte % 33.1 % (19-41); Mean Corp Hgb Conc 33.7 g/dL (32-36); Mean Corpuscular Hgb 32.7 pg (27.0-32.0); Mean Platelet Vol. 11.2 fl (6.2-12.0); Monocyte# 0.46 X10^3/uL; Monocyte% 8.6 % (0-10); NRBC Flagged by Analyzer 0 % (0-5); Neutrophil % 55.9 % (47-70); Platelet Count 206 K/mm3 (150-450); RBC Distribution Width CV 13.2 % (11.6-14.6); RBC Distribution Width SD 47.5 fl (35.1-43.9); Red Blood Count 3.98 M/mm3 (4.6-6.2); White Blood Count 5.4 K/mm3 (4.4-11.0)
== END | disposition home or self-care (01) ==
LOC: MTLAB 16:05
PROVIDERS: PCP Internal Medicine; Referring Provider Internal Medicine; Visit Provider Internal Medicine
DX: Z12.5 Encounter for screening for malignant neoplasm of prostate (principal); I10 Essential (primary) hypertension; E03.9 Hypothyroidism, unspecified
CPT/HCPCS: 36415; 80048; 84153; 84443; 85025; G0103

== ENCOUNTER → 2024-11-27 | Outpatient (CLI) | payer MEDICARE, SELFPAY ==
[2020-10-21 09:58] VITALS: BMI 27.1
[2024-11-27 12:23] LABS: Hematocrit 42.1 % (40-54); Hemoglobin 14.2 g/dL (13.0-16.5); Mean Corp Hgb Conc 33.7 g/dL (32-36); Mean Corpuscular Volume 97.9 fL (80-94); Mean Platelet Vol. 10.4 fl (6.2-12.0); Platelet Count 229 K/mm3 (150-450); RBC Distribution Width CV 13.1 % (11.6-14.6); RBC Distribution Width SD 47.0 fl (35.1-43.9); Red Blood Count 4.30 M/mm3 (4.6-6.2); White Blood Count 5.3 K/mm3 (4.4-11.0)
[2024-11-27 12:55] LABS: AST(SGOT) 21 U/L (<=37); Alanine Aminotransfer ALT/SGPT 14 U/L (<=46); Albumin, Serum 3.6 g/dL (3.4-4.8); Alkaline Phosphatase 61 U/L (40-129); Anion Gap 13 (5-15); BUN 17 mg/dL (4-19); BUN/Creat Ratio 15.7 RATIO (10-20); Calcium,Total 8.7 mg/dL (7.6-11.0); Carbon Dioxide 22.2 mmol/L (21.0-32.0); Chloride 106 mmol/L (98-108); Cholesterol 124 mg/dL (<=200); Globulin 2.5 g/dL (2.2-4.2); Glucose 95 mg/dL (70-99); Low Density Lipoprotein Calc. 65 mg/dL; Potassium 4.8 mmol/L (3.3-5.1); Triglycerides 77 mg/dL; Very Low Density Lipoprotein 15 mg/dL (5-40); cholesterol:hdl ratio screen 2.83
== END | disposition home or self-care (01) ==
LOC: MTLAB 10:18
PROVIDERS: PCP Internal Medicine; Referring Provider Internal Medicine Cardiovascular Disease; Visit Provider Internal Medicine Cardiovascular Disease
DX: I10 Essential (primary) hypertension (principal); I25.10 Atherosclerotic heart disease of native coronary artery without angina pectoris; R07.9 Chest pain, unspecified
CPT/HCPCS: 36415; 80053; 80061; 84443; 85027

== ENCOUNTER → 2025-02-24 | Outpatient (CLI) | payer MEDICARE, SELFPAY ==
[2020-10-21 09:58] VITALS: BMI 27.1
== END | disposition home or self-care (01) ==
LOC: CIMLAB 13:56
PROVIDERS: PCP Internal Medicine; Referring Provider Internal Medicine; Visit Provider Internal Medicine
DX: E03.9 Hypothyroidism, unspecified (principal)
CPT/HCPCS: 36415; 84443